=== PATIENT | female | born 1935 | race Caucasian/White ===

== ENCOUNTER → 2016-10-18 | Outpatient (CLI) | payer OTHER, MEDICARE ==
[~2016-10-18] MED LIST: ALEN70TA2 PO; ASPCH81X PO; CALCTAB7 PO; CHOL100027 PO; CHOL45CA2 PO; DOXY100C76 PO; HYDR-5688 PO; HYDR25TA4 PO; IBUP-103 PO; LEVO50TA6 PO; MULT-506 PO; SIMV20TA2 PO
--- NOTE | 2016-10-18 15:00 | MAMMOGRAPHY REPORT ---
UNILATERAL RIGHT DIGITAL DIAGNOSTIC MAMMOGRAM TOMOSYNTHESIS WITH CAD: 10/18/2016 CLINICAL HISTORY: 80-year-old woman presents for first evaluation of the right breast status post hiram mpectomy and radiation treatment for breast cancer. TECHNIQUE: Right breast CC and MLO 2-D digital and tomosynthesis images, spot magnification right CC and ML views were obtained. Current study was also evaluated with a Computer Aided Detection (CAD) system. COMPARISON: Comparison is made to exams dated: 05/10/2016 localization, 04/14/2016 stereotactic biops y, 04/14/2016 mammogram, 04/07/2016 ultrasound, 04/07/2016 mammogram, and 03/23/2016 mammogram - [facility]. BREAST COMPOSITION: There are scattered areas of fibroglandular density in the right breast. FINDINGS: A linear scar marker overlies the periareolar anterior right breast and also right axilla denoting the areas of prior lumpectomy and sentinel lymph node sampling. There is mild diffuse trab ecular edema and skin thickening, most prominent in the periareolar anterior right breast. An asymm etry in the subareolar right breast is no longer identified. There are a few benign appearing calci fications and minimal vascular calcifications. No suspicious mass, architectural distortion or clus ter of microcalcifications is seen. IMPRESSION: ACR-BI-RADS CATEGORY 3: PROBABLY BENIGN There are expected post therapeutic changes in the right breast, without definite mammographic evide nce of malignancy. Advise follow-up in 6 months to reassess post treatment changes in the right dirk ast and for spot magnification views of the lumpectomy bed. Annual left mammography will also be du e at that time. These results and recommendations were discussed with the patient and her daughter at the time of the exam. Approximately 10% of breast cancers are not detected with mammography. A negative mammographic repor t should not delay biopsy if a clinically suggestive mass is present. Sonia Tony M.D. ay/:10/18/2016 12:37:25 Law Office Manager: Sydnee Keith, [facility] letter sent: Follow Up Recommended 3 BI-RADS Code: ACR-BI-RADS Category 3: Probably Benign
== END | disposition home or self-care (01) ==
LOC: C.MAMM 10:35
PROVIDERS: ATTEND Internal Medicine Geriatric Medicine
DX: Z85.3 Personal history of malignant neoplasm of breast (principal); Z08 Encounter for follow-up examination after completed treatment for malignant neoplasm; Z98.890 Other specified postprocedural states; Z92.3 Personal history of irradiation

== ENCOUNTER → 2016-12-14 | Outpatient (CLI) | payer OTHER, MEDICARE ==
[~2016-12-14] MED LIST changes: -HYDR-5688 PO
== END | disposition home or self-care (01) ==
LOC: C.LABBC 11:24
PROVIDERS: ATTEND Internal Medicine Geriatric Medicine
DX: E03.9 Hypothyroidism, unspecified (principal)

== ENCOUNTER → 2017-04-18 | Outpatient (CLI) | payer OTHER, MEDICARE ==
--- NOTE | 2017-04-18 14:32 | MAMMOGRAPHY REPORT ---
BILATERAL DIGITAL DIAGNOSTIC MAMMOGRAM TOMOSYNTHESIS WITH CAD: 04/18/2017 CLINICAL HISTORY: History of right breast cancer status post lumpectomy. She did not have radiation therapy. The patient reports no lumps or other new complaints. TECHNIQUE: Breast tomosynthesis in addition to standard 2D mammography was performed. Current study was also evaluated with a Computer Aided Detection (CAD) system. Bilateral CC and MLO 2-D and tomosy nthesis images and spot magnification right cc and ML views were obtained. COMPARISON: Comparison is made to exams dated: 10/18/2016 mammogram, 03/23/2016 mammogram, 03/31/2015 ul trasound, 03/31/2015 mammogram, 03/21/2015 mammogram, and 03/20/2014 mammogram - [facility] nter. BREAST COMPOSITION: There are scattered areas of fibroglandular density in both breasts. FINDINGS: There are stable postsurgical changes in the right anterior breast from prior lumpectomy, including stable density, architectural distortion, and surgical clips at the lumpectomy bed. Spot m agnification views of the lumpectomy bed demonstrate no suspicious masses or clusters of microcalcifi cations. A few scattered benign-appearing right breast calcifications are stable. The remainder of both breasts are stable compared to prior exams, without suspicious masses, calcific ations, or areas of architectural distortion noted. IMPRESSION: ACR BI-RADS CATEGORY 2: BENIGN Stable postsurgical changes in the right breast, without mammographic evidence of malignancy in eithe r breast. Recommend routine bilateral mammograms in one year; I would recommend the patient be a suzy gnostic patient so that spot magnification views can be performed of the lumpectomy bed. The patient has been verbally notified of the results. Approximately 10% of breast cancers are not detected with mammography. A negative mammographic report should not delay biopsy if a clinically suggestive mass is present. Diane June M.D. /:04/18/2017 13:53:57 Envelope Maker: Myrna DE SANTIAGO)(Stephany), [facility] letter sent: Normal 1/2 BI-RADS Code: ACR BI-RADS Category 2: Benign
== END | disposition home or self-care (01) ==
LOC: C.MAMM 13:22
PROVIDERS: ATTEND Internal Medicine Geriatric Medicine
DX: R92.8 Other abnormal and inconclusive findings on diagnostic imaging of breast (principal); N64.89 Other specified disorders of breast

== ENCOUNTER → 2017-09-29 | Outpatient (CLI) | payer OTHER, MEDICARE | END | disposition home or self-care (01) | LOC: C.MAMM 10:43 | PROVIDERS: ATTEND Internal Medicine Geriatric Medicine | DX: M85.89 Other specified disorders of bone density and structure, multiple sites (principal) ==

== ENCOUNTER → 2017-10-19 | Outpatient (CLI) | payer OTHER, MEDICARE | END | disposition home or self-care (01) | LOC: C.LAB 10:18 | PROVIDERS: ATTEND Internal Medicine Geriatric Medicine | DX: E03.9 Hypothyroidism, unspecified (principal); M81.0 Age-related osteoporosis without current pathological fracture; E78.5 Hyperlipidemia, unspecified; N20.0 Calculus of kidney; I10 Essential (primary) hypertension; E83.52 Hypercalcemia; E55.9 Vitamin D deficiency, unspecified ==

== ENCOUNTER → 2018-04-20 | Outpatient (CLI) | payer OTHER, MEDICARE ==
--- NOTE | 2018-04-20 16:01 | MAMMOGRAPHY REPORT ---
BILATERAL DIGITAL DIAGNOSTIC MAMMOGRAM TOMOSYNTHESIS WITH CAD: 04/20/2018 CLINICAL HISTORY: History of right breast cancer status post lumpectomy. The patient presents for jessica ateral follow-up. She denies any palpable lumps. She reports she did have one episode of pain in the right breast at the surgical bed which resolved after a few seconds. TECHNIQUE: The study was acquired using full field digital technology and interpreted from soft copy. Breast tomosynthesis in addition to standard 2D mammography was performed. Current study was also ev aluated with a Computer Aided Detection (CAD) system. Bilateral CC and MLO 2D and tomosynthesis imag es and spot magnification right cc and ML views were obtained. COMPARISON: Comparison is made to exams dated: 04/18/2017 mammogram, 10/18/2016 mammogram, 04/14/2016 m ammogram, 04/07/2016 mammogram, 03/23/2016 mammogram, and 10/10/2015 mammogram - [facility] enter. BREAST COMPOSITION: There are scattered areas of fibroglandular density in both breasts. FINDINGS: There are stable postsurgical changes in the right anterior breast from prior lumpectomy, including s table density, architectural distortion, and surgical clips at the lumpectomy bed. Spot magnificatio n views of the lumpectomy bed demonstrate no suspicious masses or clusters of microcalcifications. T he remainder of both breasts are stable compared to prior exams, without suspicious masses, calcifica tions, or areas of architectural distortion noted. IMPRESSION: ACR BI-RADS CATEGORY 2: BENIGN There is no mammographic evidence of malignancy in either breast. A 1 year screening mammogram is rec ommended.(04/21/2019) The patient has been verbally notified of the results. Some breast cancers are not detected with mammography. A negative mammographic report should not missael y biopsy if a clinically suggestive mass is present. Diane June M.D. /:04/20/2018 14:10:39 Fire Technology Instructor: RT Makeda(R)(M), [facility] letter sent: Normal 1/2 BI-RADS Code: ACR BI-RADS Category 2: Benign
== END | disposition home or self-care (01) ==
LOC: C.MAMM 13:35
PROVIDERS: ATTEND Internal Medicine Geriatric Medicine
DX: Z85.3 Personal history of malignant neoplasm of breast (principal); Z08 Encounter for follow-up examination after completed treatment for malignant neoplasm

== ENCOUNTER 2025-01-01 17:22 | Inpatient (IN) ==
--- NOTE | 2025-01-01 18:34 | XRay Report ---
Clinical History: Pain after fall 3 views of the left shoulder are submitted for review. Findings: There is an acute mildly displaced fracture of the humeral neck No subluxation or dislocation is seen. There is mild acromioclavicular osteoarthritis. There is osteopenia. No other osseous abnormality is identified. There are no radiopaque foreign bodies. Impression: Acute fracture of the left humeral neck ACT 112: Positive. There are findings on this exam that require communication between the performing entity and the patient following Patient Test Result Information Act ([place] ACT 112) guidelines. Electronically signed by Mohinder Hansen 01-01-2025 6:34 PM
--- NOTE | 2025-01-01 18:34 | XRay Report ---
Clinical History: Pain after fall 2 views of the left wrist are submitted for review. Findings: No fracture or dislocation is seen. No significant arthritic changes are noted. There is osteopenia. No other osseous abnormality is identified. There are no radiopaque foreign bodies. Impression: No definite fracture after fall Electronically signed by Mohinder Hansen 01-01-2025 6:33 PM
--- NOTE | 2025-01-01 18:35 | XRay Report ---
Clinical History: Pain after fall 3 views of the left humerus are submitted for review. Findings: There is an acute mildly displaced fracture of the humeral neck. No other definite fracture is seen No subluxation or dislocation is seen. There is mild acromioclavicular osteoarthritis. There is osteopenia. No other osseous abnormality is identified. There are no radiopaque foreign bodies. Impression: Acute left humeral neck fracture ACT 112: Positive. There are findings on this exam that require communication between the performing entity and the patient following Patient Test Result Information Act ([place] ACT 112) guidelines. Electronically signed by Mohinder Hansen 01-01-2025 6:35 PM
[2025-01-01] MEDS: ONDANSETRON 4 MG OD TAB PO STA (19:43)
--- NOTE | 2025-01-01 19:51 | Emergency Department Note ---
Impression & Plan Closed fracture of neck of left humerus, Leukocytosis, Ground-level fall, Left shoulder pain, Nausea & vomiting, Headache ED Provider Note CHIEF COMPLAINT:, Fall, left arm pain HISTORY OF PRESENTING ILLNESS: The patient is a 89-year-old female who presents to the emergency department via EMS due to a ground-level fall an hour ago where her foot got stuck in the blanket before standing up from a chair. Fall was not witnessed. Family was at home. Complaining of left arm pain toward the shoulder. 1 episode of nausea and vomiting upon arrival. Family confirms that she keeps rubbing her head as well as the right side of her rib cage. Denies hitting head, LOC, blood thinners, chest pain, shortness of breath, abdominal pain, or back pain. Patient is able to give a history but is not the best historian. History obtained from family members as well. REVIEW OF SYSTEMS: See HPI for pertinent positives and pertinent negatives. ALLERGIES: NKDA MEDICATIONS: See below PAST MEDICAL HISTORY: See below PHYSICAL EXAM: VITALS: Vitals are noted on the nurse's note and reviewed by myself. Vital signs stable. GENERAL: 89-year-old female, lying in bed holding her left arm, in obvious discomfort, emesis bag on her lap, in no acute distress, nondiaphoretic, well- developed well-nourished. SKIN: Capillary refill less than 2 seconds. HEENT: Normocephalic. PERRLA. EOMI. Nares patent. Mucous membranes moist. Neck is supple without nuchal rigidity. TM visualized without abnormality. Normal dentition. No tenderness upon palpation to all aspects of the head and face. No cervical spine tenderness. Family confirms that she keeps holding her head as if she has a headache. HEART: Regular rate and rhythm without murmurs gallops or rubs. No chest pain upon palpation. LUNGS: Clear to auscultation bilaterally without wheezes, rales or rhonchi. No retractions or accessory muscle use. No tenderness upon palpation to bilateral rib cage. ABDOMEN: Positive bowel sounds x 4. Soft, nontender, without masses or organomegaly. No guarding or rebound tenderness. Daughters confirm that she keeps holding onto the right side of her rib cage/abdomen. MUSCULOSKELETAL: Left shoulder without obvious deformity. Exquisite tenderness upon palpation to the anterior aspect of the shoulder. Patient ROM is significantly limited. 2+ radial and ulnar pulse palpated bilaterally. 3/5 right hand wide area network engineer strength secondary to discomfort. Neurovascularly intact. No tenderness upon palpation to the right upper extremity and bilateral lower extremities. No pedal edema. NEURO: Patient was alert and oriented to person place and time. Normal sensation to light and sharp touch. No focal neurological deficits. DIFFERENTIAL DIAGNOSIS: ED COURSE AND MEDICAL DECISION MAKING: HISTORY FROM INDEPENDENT HISTORIAN: The patient herself and her 3 daughters. MEDICATIONS GIVEN: Tylenol 1000 mg IV, morphine 3 mg IV, Zofran 4 mg PO INTERPRETATION OF LABS: I interpreted the labs with full lab results as below in the lab section of this note. Pertinent lab results discussed in the MDM section below. INTERPRETATION OF IMAGING: Imaging studies were interpreted by myself and read by radiology as per the imaging section of this note. X-ray left wrist - No definite fracture after fall. CT abdomen pelvis - No parenchymal laceration or hemoperitoneum CT cervical spine - No fracture or acute bony abnormality. CT head - Mild age-related findings and incidental 6 mm right frontal meningioma. No skull fracture, bleed, or acute intracranial abnormality. CT chest - Moderate hiatal hernia nonspecific esophageal fluid, GE reflux not excluded. Impacted fracture of the left humeral neck. No pneumothorax, aortic injury, or acute intrathoracic abnormality Right knee x-ray - Previous ORIF right femur. Bony calcifications distal femur chronic. No fracture or acute bony abnormality. CT lumbar spine - No fracture or acute bony abnormality. CT thoracic spine - No fracture or acute bony abnormality. Hiatal hernia questionable GERD. Left shoulder CT/x-ray - Comminuted and impacted fracture left humeral neck. ESCALATION OF CARE CONSIDERED: Escalation of care was considered due to the patient's age and an unwitnessed fall. Patient complains of significant amount of pain as well as continues to hold her head and her right sided rib cage. Bailey scans were obtained showing no significant findings other than a comminuted and impacted fracture of the left humeral neck. Patient regularly ambulates with a cane for help with balance. I did discuss with the patient's 3 daughters that having the left arm in a sling may make ambulating at home and activities of daily living difficult. Daughters confirm and agreed that they understand. Patient had an elevated white count and required IV morphine for pain management. Patient was admitted to medicine. CONSULTATIONS: On-call [facility] hospitalist provider - I presented the patient to the provider, notified them of the left humeral neck fracture, elevated white count, IV pain medication requirement, ambulatory dysfunction, and family members agreeing that it may not be ideal or safe for the patient to go home this evening due to how she is feeling in the emergency department today. Medicine agrees to admission and confirms that they will go and evaluate the patient. I did inform them that I did not consult with orthopedics. Typically humeral neck fractures are placed in a sling and discharged routinely. They agreed they would admit her. MDM SUMMARY: The patient is an 89-year-old female presents to the ER with her 3 daughters due to a ground-level fall, left shoulder pain, family confirms that she has been holding her head and her right side rib/abdomen. Episode of nausea and vomiting upon arrival. Denies hitting head, LOC, blood thinners, chest pain, shortness of breath, abdominal pain, or back pain. Patient is able to give a history but is not the best historian. History obtained from family members as well. Due to the patient being a poor historian, unwitnessed fall, and my physical exam the patient was bailey scanned. Tylenol was given for symptom management originally. All imaging results can be seen in detail above. After the patient obtained CT scan she was in a significant amount of discomfort. Morphine and Zofran were given. Left shoulder imaging reveals comminuted and impacted fracture of the left humeral neck. Patient and family were informed of this finding as well as all incidental findings. Leukocytosis WBC 15.45. RBC 5.01. Hemoglobin hematocrit 14.1/43.5. No electrolyte abnormalities. BUN 24. Creatinine 0.64. Troponin normal less than 2.3. No other significant findings. No obvious cause for leukocytosis. Urinalysis was ordered upon admission to rule out UTI. I talked with the patient as well as her 3 daughters regarding if it is safe for her to go home. They do confirm that she ambulates with a cane that helps her significantly with her balance. We did discuss that ultimately her left arm will now be in a sling due to the fracture so she will have 1 limited arm to help her with ambulation. 3 daughters confirm that they feel as if she may benefit from being admitted for pain management as well as potentially therapy to learn how to strengthen herself to use the cane with 1 arm suspended in a sling. I did confirm with them that ultimately I think this is the safest plan so that she does not have any falls at home. I did discuss the patient admission with on-call Therese [facility]s hospitalist which can be seen in detail above. They confirmed that they would evaluate the patient themselves and admit her. All family members were notified of the plan and agreed to the outlined treatment. The remainder of her care was managed by the hospitalist. DIAGNOSIS: Closed fracture of neck of left humerus, leukocytosis, ground-level fall, left shoulder pain, nausea and vomiting, headache The chart was completed utilizing [email or web address] Speech voice recognition software. Grammatical errors, random word insertions, pronoun errors, and incomplete sentences are an occasional consequence of this system due to software limitations, ambient noise, and hardware issues. Any formal questions or concerns about the content, text, or information contained within the body of this dictation should be directly addressed to the provider for clarification. Past Med/Surg History Problem List Headache (Acute) Nausea & vomiting (Acute) Left shoulder pain (Acute) Ground-level fall (Acute) Leukocytosis (Acute) Closed fracture of neck of left humerus (Acute) Hypoxia Leukocytosis Fracture of neck of left humerus (01/01/25) Comminuted and impacted fracture left humeral neck from a fall. 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) "Abnormal right breast mammogram Status post stereotactic biopsy 04/14/2016 revealing DCIS Estrogen receptor positive and progesterone receptor positive Status post lumpectomy and sentinel lymph node biopsy 05/10/2016 Stage pTis pN0 Wound dehiscence and placement of wound VAC For removal of wound VAC 06/18/2016" Surgical History History of esophagogastroduodenoscopy (EGD) H/O total hysterectomy with bilateral salpingo-oophorectomy (BSO) History of open reduction and internal fixation (ORIF) procedure (~1997) right hip fx repair History of total right hip replacement History of lumpectomy of right breast History of right breast biopsy malignant History of tooth extraction partial upper/full lower History of wisdom tooth extraction History of tonsillectomy and adenoidectomy S/P cataract surgery bilt Family History Mother Diabetes Heart disease Family history of diabetes mellitus Myocardial infarction Sister Sarcoma Suicide Family history of diabetes mellitus Ovarian cancer Father Family history of diabetes mellitus Myocardial infarction Sister Family history of diabetes mellitus Other Breast cancer No family history of adverse response to anesthesia Denies family history of Prostate cancer Lung cancer Colorectal cancer Social History Smoking Status: Never smoker Second Hand Exposure: No; Do You Dip or Chew Tobacco: No; Hx Alcohol Use: No Hx Substance Use: No Preferred Language: Syrian Communication Ability: Effective Hearing Ability: Normal Inbound Telemarketer Required: No Beliefs That Will Affect Care: None marital status: / Current Living Situation: Family Current Living Situation Comment: Lives with daughter current occupational status: retired Feels Safe at Home: Yes Safety Concerns Comment: Fall concerns Childhood Exposure to Second-Hand Smoke: No Diet: regular caffeine: No Dental Care, Regularly: Yes Physical Activity Frequency: 3-4 Times per Week Seatbelt Use: always Sunscreen Use: Yes Assistive Devices: Cane Allergies Allergies Allergy/AdvReac Type Severity Reaction Status Date / Time No Known Allergies Allergy Verified 01/01/25 22:40 Home Meds Home Medications Medication Instructions Recorded Confirmed alendronate 70 mg tablet (Fosamax) 70 mg PO WK 01/01/25 01/01/25 ferrous sulfate 325 mg (65 mg 325 mg PO 3XWK 01/01/25 01/01/25 iron) tablet Previous Rx's Medication Instructions Recorded levothyroxine 75 mcg tablet 75 mcg PO DAILY #90 tabs 05/14/24 simvastatin 20 mg tablet 20 mg PO QPM #90 tabs 05/14/24 escitalopram oxalate 10 mg tablet 10 mg PO DAILY #10 tabs 07/13/24 Results & Data (ED) Vital Signs Vital Signs - 24 hr 01/01/25 23:00 Pulse Rate [Apical] 81 Respiratory Rate 18 Respiratory Effort / Characteristics Non-Labored Spontaneous Respiratory Depth Normal Respiratory Pattern Regular Blood Pressure [Right Arm] 134/105 H Blood Pressure Mean [Right Arm] 114 Pulse Oximetry 99 Oxygen Delivery Method Nasal Cannula Oxygen Flow Rate 1 Laboratory Data 01/02/25 06:46 01/02/25 06:46 Lab Results 01/01/25 01/01/25 Range/Units 20:24 20:29 WBC 15.45 H (4.8-10.8) K/ul RBC 5.01 (4.20-5.40) M/uL Hgb 14.1 (12.0-16.0) g/dl POC Hgb 14.6 (12.0-16.0) g/dl Hct 43.5 (37.0-47.0) % POC Hct 43 (37-47) % MCV 86.8 (80.0-100.0) fL MCH 28.1 (25.0-34.0) pg MCHC 32.4 (32.0-36.0) g/dL RDW Std Deviation 43.2 (36.4-46.3) fL RDW Coeff of Oralia 13.8 (11.5-14.5) % Plt Count 160 (130-400) K/uL MPV 10.0 (9.4-12.4) fL Immature Gran % (Auto) 0.9 % Neut % (Auto) 91.6 % Lymph % (Auto) 3.9 % [place] % (Auto) 3.2 % Eos % (Auto) 0.1 % Baso % (Auto) 0.3 % Neut # (Auto) 14.15 H (1.40-6.50) K/uL Lymph # (Auto) 0.61 L (1.20-3.40) K/uL [place] # (Auto) 0.50 (0.11-0.59) K/uL Eos # (Auto) 0.01 (0.00-0.50) K/uL Baso # (Auto) 0.04 (0.00-0.20) K/uL Immature Gran # (Auto) 0.14 (0.01-0.20) K/uL POC Sodium 142 (135-144) mmol/L Sodium 140 (136-145) mmol/L POC Potassium 3.8 (3.3-5.0) mmol/L Potassium 3.9 (3.5-5.1) mmol/L POC Chloride 104 (101-112) mmol/L Chloride 105 (98-107) mmol/L Carbon Dioxide 30 (21-32) mmol/L POC Total CO2 27 (24-31) mmol/L Anion Gap 5 (3-11) POC Anion Gap 16.0 (16-25) mmol/L POC BUN 24 H (7-18) mg/dl BUN 24 H (6-23) mg/dl Creatinine 0.64 (0.6-1.2) mg/dl POC Creatinine 0.6 (0.6-1.3) mg/dl Est Cr Clr Drug Dosing Not Reportable eGFR 84.95 BUN/Creatinine Ratio 37.5 H (10-20) Glucose 130 H (70-99(Fasting)) mg/dl POC Glucose (other) 130 H (70-99) mg/dl Calcium 9.3 (8.6-10.3) mg/dl POC Ioniz Calcium Ninoska 1.14 (1.12-1.32) mmol/l Total Bilirubin 0.5 (0.2-1.0) mg/dl AST 17 (13-39) U/L ALT 9 (7-52) U/L Alkaline Phosphatase 73 (34-104) U/L Troponin I High Sens < 2.3 (0-14) pg/ml Total Protein 7.0 (6.0-8.3) gm/dl Albumin 4.6 (3.4-5.0) gm/dl Globulin 2.4 L (2.5-4.0) gm/dl Albumin/Globulin Ratio 1.9 (0.9-2) Administered Medications Acetaminophen (Acetaminophen 500 Mg Tab) 1,000 mg PO TID NOLAN Stop: 02/01/25 08:59 Last Admin: 01/02/25 20:02 Dose: 1,000 mg Documented By: Admin: 01/02/25 14:36 Dose: 1,000 mg Documented By: Admin: 01/02/25 08:18 Dose: 1,000 mg [place] [facility] [place]italopram Oxalate (Escitalopram Oxalate 10 Mg Tab) 10 mg PO DAILY NOLAN Stop: 02/01/25 08:59 Last Admin: 01/02/25 08:19 Dose: 10 mg [place]ed [place] [facility] [place] Ferrous Sulfate (Ferrous Sulfate 325 Mg Tab) 325 mg PO MoWeFr@0900 NOLAN Stop: 02/01/25 08:59 Last Admin: 01/02/25 08:19 Dose: 325 mg Documented By: [facility] [place]othyroxine Sodium (Levothyroxine Sodium 75 Mcg Tablet) 75 mcg PO DAILYBB NOLAN Stop: 02/01/25 06:29 Last Admin: 01/02/25 08:19 Dose: 75 mcg Documented By: [facility] [place] Simvastatin (Simvastatin 20 Mg Tab) 20 mg PO QPM NOLAN Stop: 02/01/25 20:59 Last Admin: 01/02/25 20:02 Dose: 20 mg Documented By: JAVIERK Discontinued Medications Acetaminophen (Ofirmev) 1,000 mg in 100 mls @ 400 mls/hr IV NOW STA Stop: 01/01/25 20:17 Last Infusion: 01/01/25 20:42 Dose: Infused Documented By: Admin: 01/01/25 20:27 Dose: 400 mls/hr Documented By: [facility] Ioversol (Optiray 320 100ml) 90 ml IV ONCE ONE Stop: 01/01/25 20:43 Last Admin: 01/01/25 20:42 Dose: 90 ml Documented By: Kody Morphine Sulfate (Morphine Sulfate 4 Mg/Ml 1 Ml Carp\\Vial) 3 mg IV NOW STA Stop: 01/01/25 21:01 Last Admin: 01/01/25 21:06 Dose: 3 mg Documented By: [facility] Ondansetron HCl (Ondansetron 4 Mg Od Tab) 4 mg PO NOW STA Stop: 01/01/25 19:41 Last Admin: 01/01/25 19:43 Dose: 4 mg Documented By: [facility] Imaging Data Radiologist's Impression: Humerus X-Ray 01/01/25 17:43 Clinical History: Pain after fall 3 views of the left humerus are submitted for review. Findings: There is an acute mildly displaced fracture of the humeral neck. No other definite fracture is seen No subluxation or dislocation is seen. There is mild acromioclavicular osteoarthritis. There is osteopenia. No other osseous abnormality is identified. There are no radiopaque foreign bodies. Impression: Acute left humeral neck fracture ACT 112: Positive. There are findings on this exam that require communication between the performing entity and the patient following Patient Test Result Information Act ([place] ACT 112) guidelines. Electronically signed by Mohinder Hansen 01-01-2025 6:35 PM Shoulder X-Ray 01/01/25 17:43 Clinical History: Pain after fall 3 views of the left shoulder are submitted for review. Findings: There is an acute mildly displaced fracture of the humeral neck No subluxation or dislocation is seen. There is mild acromioclavicular osteoarthritis. There is osteopenia. No other osseous abnormality is identified. There are no radiopaque foreign bodies. Impression: Acute fracture of the left humeral neck ACT 112: Positive. There are findings on this exam that require communication between the performing entity and the patient following Patient Test Result Information Act ([place] ACT 112) guidelines. Electronically signed by Mohinder Hansen 01-01-2025 6:34 PM Wrist X-Ray 01/01/25 17:43 Clinical History: Pain after fall 2 views of the left wrist are submitted for review. Findings: No fracture or dislocation is seen. No significant arthritic changes are noted. There is osteopenia. No other osseous abnormality is identified. There are no radiopaque foreign bodies. Impression: No definite fracture after fall Electronically signed by Mohinder Hansen 01-01-2025 6:33 PM Discharge Plan Visit Data Chief Complaint: Fall Stated Complaint: GLF, L Arm Pain ED Provider: Dayna Troncoso ED Midlevel Provider: Maryann Garcia Discharge Problem: Closed fracture of neck of left humerus, Leukocytosis, Ground-level fall, Left shoulder pain, Nausea & vomiting, Headache Patient Disposition: Admitted As Inpatient Condition: Good Discharge Instructions Interventions: ED Discharge Assessment Last Done: 01/02/25 01:32 Discharge Problem: Closed fracture of neck of left humerus Qualifiers: Encounter type: initial encounter Qualified Code(s): S42.212A - Unspecified displaced fracture of surgical neck of left humerus, initial encounter for closed fracture Leukocytosis Qualifiers: Leukocytosis type: unspecified Qualified Code(s): D72.829 - Elevated white blood cell count, unspecified Left shoulder pain Qualifiers: Chronicity: acute Qualified Code(s): M25.512 - Pain in left shoulder Nausea & vomiting Qualifiers: Vomiting type: unspecified Qualified Code(s): R11.2 - Nausea with vomiting, unspecified Headache Qualifiers: Headache type: unspecified Headache chronicity pattern: acute headache I ntractability: not intractable Qualified Code(s): R51.9 - Headache, unspecified
[2025-01-01] MEDS: ACETAMINOPHEN 1,000 MG/100 ML VIAL IV STA (20:27)
[2025-01-01 20:41] LABS: iSTAT Creatinine 0.6 mg/dl (0.6-1.3); iSTAT Hemoglobin 14.6 g/dl (12.0-16.0); iSTAT Ionized Calcium 1.14 mmol/l (1.12-1.32); iSTAT Potassium 3.8 mmol/L (3.3-5.0)
[2025-01-01 20:42] LABS: Hematocrit (blood only) 43.5 % (37.0-47.0); Hemoglobin 14.1 g/dl (12.0-16.0); Mean Corpuscular Hemoglobin 28.1 pg (25.0-34.0); Mean Corpuscular Hgb Conc 32.4 g/dL (32.0-36.0); Mean Corpuscular Volume 86.8 fL (80.0-100.0); Platelet Count 160 K/uL (130-400); RDW Coefficient of Variation 13.8 % (11.5-14.5); RDW Standard Deviation 43.2 fL (36.4-46.3); Red Blood Count 5.01 M/uL (4.20-5.40); White Blood Count 15.45 K/ul (4.8-10.8)
[2025-01-01] MEDS: OPTIRAY 320 100ml IV ONE (20:42)
[2025-01-01 20:58] LABS: Alanine Aminotransferase 9 U/L (7-52); Albumin Globulin Ratio 1.9 (0.9-2); Albumin Level 4.6 gm/dl (3.4-5.0); Alkaline Phosphatase 73 U/L (34-104); Anion Gap 5 (3-11); Aspartate Aminotransferase 17 U/L (13-39); BUN Creatinine Ratio 37.5 (10-20); Bilirubin,Total 0.5 mg/dl (0.2-1.0); Blood Urea Nitrogen 24 mg/dl (6-23); Calcium 9.3 mg/dl (8.6-10.3); Carbon Dioxide 30 mmol/L (21-32); Chloride 105 mmol/L (98-107); Globulin 2.4 gm/dl (2.5-4.0); Glucose 130 mg/dl (70-99(Fasting)); Potassium 3.9 mmol/L (3.5-5.1); Sodium 140 mmol/L (136-145)
[2025-01-01 21:05] LABS: Troponin I High Sensitivity < 2.3 pg/ml (0-14)
[2025-01-01] MEDS: MoRPHine SULFATE 4 MG/ML 1 ML CARP\\VIAL IV STA (21:06)
[2025-01-01 22:12] LABS: Basophils # (auto) 0.04 K/uL (0.00-0.20); Basophils % (auto) 0.3 %; Eosinophils # (auto) 0.01 K/uL (0.00-0.50); Eosinophils % (auto) 0.1 %; Immature Granulocytes # (auto) 0.14 K/uL (0.01-0.20); Immature Granulocytes % (auto) 0.9 %; Lymphocytes # (auto) 0.61 K/uL (1.20-3.40); Lymphocytes % (auto) 3.9 %; Monocytes % (auto) 3.2 %; Neutrophils # (auto) 14.15 K/uL (1.40-6.50); Neutrophils % (auto) 91.6 %
--- NOTE | 2025-01-01 22:18 | XRay Report ---
Exam(s): XR RIGHT KNEE, 3 views EXAM: XR Right Knee, 3 Views CLINICAL HISTORY: Reason for exam: fall. TECHNIQUE: Three views of the right knee. COMPARISON: No relevant prior studies available. FINDINGS: Bones/joints: Partially imaged intramedullary christiana mid to distal femur. Calcifications within the distal femur metadiaphyseal junction, 2.7 x 1.2 x 1.2 cm, chronic. Minimal patellofemoral osteoarthritis. No acute fracture. No dislocation. Soft tissues: No joint effusion. IMPRESSION: 1. Previous ORIF right femur. 2. Bony calcifications distal femur, chronic. 3. No fracture or acute bony abnormality. Electronically signed by: Madelin Hoffmann M.D. 01/01/25 22:18 PM
--- NOTE | 2025-01-01 22:22 | CT Scan Report ---
Exam(s): CT HEAD Without Contrast EXAM: CT Head Without Intravenous Contrast CLINICAL HISTORY: Reason for exam: fall. TECHNIQUE: Axial computed tomography images of the head/brain without intravenous contrast. Automated exposure control was utilized for the study. A dose lowering technique was utilized adhering to the principles of ALARA. Mild motion artifact. COMPARISON: None. FINDINGS: Brain: 6 mm extra-axial, hypodense nodule right frontal lobe near the vertex, incidental, probable meningioma. No mass effect or acute infarct. No acute hemorrhage. Mild atrophy and chronic white matter disease. Ventricles: No hydrocephalus or midline shift. Bones/joints: No skull fracture. Soft tissues: No scalp hematoma. Visualized Sinuses: Clear. Mastoid air cells: No mastoid effusion. IMPRESSION: 1. Mild age-related findings, and an incidental, 6 mm right frontal meningioma. 2. No skull fracture, bleed, or acute intracranial abnormality. Electronically signed by: Madelin Hoffmann M.D. 01/01/25 22:22 PM
--- NOTE | 2025-01-01 22:28 | CT Scan Report ---
Exam(s): CT L SPINE With Contrast IV Amt: 90 ml optiray 320 EXAM: CT Lumbar Spine With Intravenous Contrast CLINICAL HISTORY: Reason for exam: fall. TECHNIQUE: Axial computed tomography images of the lumbar spine with intravenous contrast. Automated exposure control was utilized for the study. A dose lowering technique was utilized adhering to the principles of ALARA. CTDI is mGy and DLP is mGy-cm. 90 ML Optiray 320 given IV. Mild to moderate motion artifact. COMPARISON: None. FINDINGS: Vertebrae: No acute fracture. Osteoporosis. Discs/spinal canal/neural foramina: Severe diffuse degenerative disc disease with multilevel vacuum disc. Moderate facet hypertrophy. Soft tissues: Aortic atherosclerosis.. IMPRESSION: 1. No fracture or acute bony abnormality. Electronically signed by: Madelin Hoffmann M.D. 01/01/25 22:27 PM
--- NOTE | 2025-01-01 22:29 | CT Scan Report ---
Exam(s): CT T SPINE IV Amt: 90 ml optiray 320 EXAM: CT Thoracic Spine With Intravenous Contrast CLINICAL HISTORY: Reason for exam: fall. TECHNIQUE: Axial computed tomography images of the thoracic spine with intravenous contrast. Automated exposure control was utilized for the study. A dose lowering technique was utilized adhering to the principles of ALARA. CTDI is mGy and DLP is mGy-cm. Mild breathing motion artifact. CONTRAST: Patient received 90 ml optiray 320 of IV contrast COMPARISON: None. FINDINGS: Vertebrae: No acute fracture. Incidental sclerosis T9, and discogenic endplate sclerosis thoracolumbar junction. Discs/spinal canal/neural foramina: Moderate degenerative disc disease, commensurate with age. Soft tissues: Atherosclerotic aorta and moderate hiatal hernia. Fluid in the esophagus is nonspecific, may relate to gastroesophageal reflux or recent ingestion. IMPRESSION: 1. No fracture or acute bony abnormality. 2. Hiatal hernia and questionable gastroesophageal reflux. Electronically signed by: Madelin Hoffmann M.D. 01/01/25 22:28 PM
--- NOTE | 2025-01-01 22:29 | CT Scan Report ---
Exam(s): CT C SPINE EXAM: CT Cervical Spine Without Intravenous Contrast CLINICAL HISTORY: Reason for exam: fall. TECHNIQUE: Axial computed tomography images of the cervical spine without intravenous contrast. Automated exposure control was utilized for the study. A dose lowering technique was utilized adhering to the principles of ALARA. CTDI is mGy and DLP is mGy-cm. COMPARISON: None. FINDINGS: Vertebrae: No acute fracture. Discs/spinal canal/neural foramina: Moderate degenerative disc and facet disease, commensurate with age. Soft tissues: Unremarkable. IMPRESSION: 1. No fracture or acute bony abnormality. Electronically signed by: Madelin Hoffmann M.D. 01/01/25 22:28 PM
--- NOTE | 2025-01-01 22:44 | CT Scan Report ---
Exam(s): CT CHEST With Contrast IV Amt: 90 ml optiray 320 EXAM: CT Chest With Intravenous Contrast CLINICAL HISTORY: Reason for exam: fall. TECHNIQUE: Axial computed tomography images of the chest with intravenous contrast. Automated exposure control was utilized for the study. A dose lowering technique was utilized adhering to the principles of ALARA. CTDI is mGy and DLP is mGy-cm. Mild breathing/motion artifact and from bilateral arms in the [id number]. CONTRAST: Patient received 90 ml optiray 320 of IV contrast COMPARISON: None. FINDINGS: Lungs: Grossly clear, limited by breathing motion artifact. No consolidation. Pulmonary arteries: No engorgement. Aorta: No thoracic aortic aneurysm. Pleural space: No effusion. No pneumothorax. Heart: No cardiomegaly. No significant pericardial effusion. Bones/joints: Mild impacted fracture left humeral neck. No other acute fracture. Soft tissues: Moderate hiatal hernia and mild fluid in the mid/distal esophagus, nonspecific, may be from recent ingestion of food or drink. Cannot rule out gastroesophageal reflux.. Lymph nodes: No enlarged lymph nodes. IMPRESSION: 1. Moderate hiatal hernia and nonspecific esophageal fluid, GE reflux not excluded. 2. Impacted fracture left humeral neck. 3. No pneumothorax, aortic injury, or acute intrathoracic abnormality. Electronically signed by: Madelin Hoffmann M.D. 01/01/25 22:43 PM
--- NOTE | 2025-01-01 22:45 | CT Scan Report ---
Exam(s): CT LEFT SHOULDER Without Contrast EXAM: CT Left Upper Extremity Without Intravenous Contrast, Shoulder CLINICAL HISTORY: Reason for exam: shoulder. TECHNIQUE: Axial computed tomography images of the left shoulder without intravenous contrast. Automated exposure control was utilized for the study. A dose lowering technique was utilized adhering to the principles of ALARA. MPR and 3D reformats are performed and reviewed. COMPARISON: Left shoulder x-ray, same day. FINDINGS: Bones/joints: Impacted and comminuted fracture left humeral neck. No other fracture. No dislocation. Soft tissues: Unremarkable. IMPRESSION: 1. Comminuted and impacted fracture left humeral neck. Electronically signed by: Madelin Hoffmann M.D. 01/01/25 22:44 PM
--- NOTE | 2025-01-01 22:46 | CT Scan Report ---
Exam(s): CT ABDOMEN + PELVIS With Contrast IV Amt: 90 ml optiray 320 EXAM: CT Abdomen and Pelvis With Intravenous Contrast CLINICAL HISTORY: Reason for exam: fall. TECHNIQUE: Axial computed tomography images of the abdomen and pelvis with intravenous contrast. Automated exposure control was utilized for the study. A dose lowering technique was utilized adhering to the principles of ALARA. Moderate artifact body habitus, breathing/patient motion and bilateral arms in the [id number]. CTDI is mGy and DLP is mGy-cm. CONTRAST: Patient received 90 ml optiray 320 of IV contrast COMPARISON: None. FINDINGS: Liver: No injury. Gallbladder and bile ducts: Normal gallbladder. No ductal dilation. Pancreas: No ductal dilation. Spleen: No laceration. Adrenals: Unremarkable. No mass. Kidneys and ureters: No injury. Stomach and bowel: No obstruction. Intraperitoneal space: No free air or fluid. Bones/joints: Metal artifact from right hip prosthesis. No acute fracture. Soft tissues: Unremarkable. Vasculature: No abdominal aortic aneurysm. Lymph nodes: No enlarged lymph nodes. Bladder: No injury. Reproductive: Unremarkable as visualized. IMPRESSION: 1. No parenchymal laceration or hemoperitoneum. Electronically signed by: Madelin Hoffmann M.D. 01/01/25 22:45 PM
--- NOTE | 2025-01-01 23:29 | History & Physical Report ---
Date of Service January 01, 2025 Assessment & Plan (1) Fall: (2) Ambulatory dysfunction: (3) Fracture of neck of left humerus: (4) Leukocytosis: (5) Hypoxia: (6) Cognitive impairment: Plan Patient is an 89-year-old female with a past medical history of cognitive impairment, hypertension, osteoporosis, hyperlipidemia. She presented to the ED via EMS after an unwitnessed, but fall in which her foot got stuck in a blanket when she went from sitting to standing from a chair. Diagnostic imaging in the ED revealed an impacted comminuted left humeral neck fracture. Patient is being admitted for ambulatory dysfunction as she uses a walker and a cane at home. Patient lives with her daughter at home who has work tomorrow and there was concerned about her being at home alone after the fall. #Fall/ambulatory dysfunction/left humeral neck fx Uses walker and cane at baseline imaging showed commuted and impacted left humeral neck fracture otherwise diagnostic imaging negative for acute changes arm Sling ordered Orthopedics consulted PT/OT consulted fall and aspiration precautions Tylenol prn, ibuprofen prn, and Oxycodone 2.5/5 (for pain not relieved by #1 and 2) Ice as needed Hx osteoporosis - continue alendronate at discharge #leukocytosis WC 15.45 with neutrophil predominance no signs in infection at time of admission, VSS, afebrile UA ordered suspect 2/2 stress trend CBC #hypoxia on 1L NC at time of admission chest CT negative suspect 2/2 IV morphine in ED wean O2 as tolerated incentive spirometry continuous pulse ox #incidental findings Head CT revealed 6mm right frontal meningioma Chest CT revealed moderate hiatal hernia follow with PCP Chronic stable diagnoses: dementiacontinue escitalopram, promote good sleep-wake cycles, melatonin as needed Hypothyroidismcontinue levothyroxine HLDcontinue statin VTE ppx: SCDs Diet: Regular Dispo: med surg with contiguous pulse ox Ultimate goal is for patient to return home with daughter, Deedee, that she lives with. Admission and Anticipated Discharge Date Admission Date: 01/02/25 History of Present Illness Chief Complaint: fall Primary Care Provider: Danette Kuo MD Patient is an 89-year-old female with a past medical history of cognitive impairment, hypertension, osteoporosis, hyperlipidemia. She presented to the ED via EMS after an unwitnessed, but fall in which her foot got stuck in a blanket when she went from sitting to standing from a chair. Diagnostic imaging in the ED revealed an impacted comminuted left humeral neck fracture. Patient is being admitted for ambulatory dysfunction as she uses a walker and a cane at home. Patient lives with her daughter at home who has work tomorrow and there was concerned about her being at home alone after the fall. Patient seen at bedside. she is oriented to self only. She stated she does remember falling today and fell on her left arm however does not remember what happened. She denies any head strike or loss of consciousness. Patient was very distressed about falling as she is always in good health and has had no falls previously. She said she vomited at home because she was upset about this. She typically ambulates well at baseline. She denies any significant ROS, pain is well-controlled at this point. She stated she lives at home with her family/daughter. Spoke with patient's daughter, Melanie on the phone. She stated that the patient has been more confused at home and up in the middle of the night however lives at home with her sister, Concepcion. The ultimate goal is for the patient to return home. She stated that the patient would wish to be full code and that she may be acutely more confused than her baseline after the morphine. Allergies Allergy/AdvReac Type Severity Reaction Status Date / Time No Known Allergies Allergy Verified 01/01/25 22:40 Home Medications Medication Instructions Recorded Confirmed Type levothyroxine 75 mcg tablet 75 mcg PO DAILY #90 tabs 05/14/24 01/01/25 Rx simvastatin 20 mg tablet 20 mg PO QPM #90 tabs 05/14/24 01/01/25 Rx escitalopram oxalate 10 mg tablet 10 mg PO DAILY #10 tabs 07/13/24 01/01/25 Rx alendronate 70 mg tablet (Fosamax) 70 mg PO WK 01/01/25 01/01/25 History ferrous sulfate 325 mg (65 mg 325 mg PO 3XWK 01/01/25 01/01/25 History iron) tablet Past Med/Surg History Problem List (Updated 01/02/25 @ 00:12 by Olena Laughlin PA-C) Hypoxia Leukocytosis Fracture of neck of left humerus Ambulatory dysfunction Fall Cognitive impairment (Chronic) Anxiety (Chronic) Sinus bradycardia Glaucoma (Chronic) Arthritis of knee, left (Chronic) Vitamin D deficiency (Chronic) PVCs (premature ventricular contractions) (Chronic) Osteoporosis (Chronic) Fosamax restarted 10/2022 Hypothyroidism (Chronic) Hypertension (Chronic) Dyslipidemia (Chronic) Disc degeneration, lumbar (Chronic) Cardiomyopathy (Chronic) Medical History (Updated 01/02/25 @ 00:12 by Olena Laughlin PA-C) Iron deficiency anemia negative colon 01/14, EGD 01/14 showed gastric erosions - resolved on follow up, negative capsule endoscopy 09/15 History of kidney stones 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) "Abnormal right breast mammogram Status post stereotactic biopsy 04/14/2016 revealing DCIS Estrogen receptor positive and progesterone receptor positive Status post lumpectomy and sentinel lymph node biopsy 05/10/2016 Stage pTis pN0 Wound dehiscence and placement of wound VAC For removal of wound VAC 06/18/2016" Surgical History History of esophagogastroduodenoscopy (EGD) H/O total hysterectomy with bilateral salpingo-oophorectomy (BSO) History of open reduction and internal fixation (ORIF) procedure (~1997) right hip fx repair History of total right hip replacement History of lumpectomy of right breast History of right breast biopsy malignant History of tooth extraction partial upper/full lower History of wisdom tooth extraction History of tonsillectomy and adenoidectomy S/P cataract surgery bilt Family History Mother Diabetes Heart disease Family history of diabetes mellitus Myocardial infarction Sister Sarcoma Suicide Family history of diabetes mellitus Ovarian cancer Father Family history of diabetes mellitus Myocardial infarction Sister Family history of diabetes mellitus Other Breast cancer No family history of adverse response to anesthesia Denies family history of Prostate cancer Lung cancer Colorectal cancer Social History (Updated 10/19/24 @ 09:00 by LAUREEN Fonseca) Smoking Status: Never smoker Second Hand Exposure: No; Do You Dip or Chew Tobacco: No; Hx Alcohol Use: No Hx Substance Use: No Preferred Language: Setswana Communication Ability: Effective Hearing Ability: Normal Cable Systems Installer Required: No Beliefs That Will Affect Care: None marital status: / Current Living Situation: Family Current Living Situation Comment: Lives with daughter current occupational status: retired Feels Safe at Home: Yes Safety Concerns Comment: Fall concerns Childhood Exposure to Second-Hand Smoke: No Diet: regular caffeine: No Dental Care, Regularly: Yes Physical Activity Frequency: 3-4 Times per Week Seatbelt Use: always Sunscreen Use: Yes Assistive Devices: Cane and Walker Review of Systems Review of Systems: see HPI Physical Exam Physical Exam: The patient is awake, oriented to self only. HEENT- EOMI, mucous membranes moist. Hearing grossly intact. Heart-normal S1 and S2. No murmurs, rubs or gallops. Lungs-clear bilaterally, no respiratory distress, no accessory muscle use. Abdomen-normal bowel sounds and soft. No ascites noted. Non-tender. Extremities- no clubbing, cyanosis, or edema. No significant pain to palpation of left upper extremity. Results & Data Results & Data Vital Signs (Past 12 Hours) Vital Signs Temp Pulse Pulse Resp BP BP Pulse Ox 01/01/25 21:57 76 18 169/91 H 100 01/01/25 20:28 77 22 150/76 H 96 01/01/25 17:32 36.2 C L 60 16 148/67 H 96 O2 Del Method 01/01/25 21:57 Room Air 01/01/25 20:28 Room Air 01/01/25 17:32 Room Air Laboratory Results reviewed cbc and cmp Medications Administered ED - Zofran 4mg IV, Tylenol 1g IV, morphine 3mg IV ECG Additional Comments: ordered Code Status & VTE Plan VTE Prophylaxis Plan VTE Prophylaxis will be ordered: Yes Supervising Physician Co-Signing Physician Notes I personally saw and examined the patient. I independently reviewed the labs, EKG, imaging, problem list, medication list, past medical history and family history. I verified all wall points and agree with Olena Laughlin PA-C with the following exceptions and/or additions: 89-year-old female presents to the ER following a ground-level fall after tripping on carpet. Unable to get any history from the patient due to baseline dementia. She is unable to tell me how much pain she is in with her shoulder. O/E HS RRR, no murmurs, Chest CTAB, Abdo SNT, normal left radial pulse and finger movement A/P Fall/ambulatory dysfunction/left humeral neck fx - consult ortho, will switch acetaminophen to regular, ibuprofen 1st line PRN and oxycodone 2nd line PRN Leukocytosis - suspect stress demargination, repeat level in AM PG Care Time/CCT Total # of Minutes Spent Total Time Spent with Patient: Total time spent is greater than 50% in coordination of care (as documented) at patient's floor/unit and/or counseling patient: Coding Level of Care Code 53532 INT INP/OBS CARE 3/75MIN Diagnoses Fall W19.XXXA Ambulatory dysfunction R26.2 Fracture of neck of left humerus S42.212A Leukocytosis D72.829 Hypoxia R09.02 Cognitive impairment R41.89
--- NOTE | 2025-01-01 23:44 | Emergency Department Note ---
ED Visit Note I was consulted by Maryann Garcia PA-C. I personally made/approved the management plan and take responsibility for the patient management. I performed a substantive portion of the visit. This includes the aspects of Reviewing the imaging studies. I did examine the patient and spoke with her daughters at the bedside. She was informed that the left humeral head is fractured. I do feel the patient will likely require hospitalization and a rehabilitation stay. Please review Maryann Garcia PA-C's notes for further details of the history, physical and visit. .
[2025-01-02] MEDS ORDERED: oxyCODONE HCL IR 5 MG TAB (IMMEDIATE RELEASE) PO PRN (01:32)
[2025-01-02] MEDS ORDERED: DOCUSATE SODIUM 100 MG CAP PO PRN (01:32)
[2025-01-02] MEDS ORDERED: ONDANSETRON INJ 2 MG/ML 2 ML VIAL IV PRN (01:32)
[2025-01-02] MEDS ORDERED: MELATONIN 3 MG TAB PO PRN (01:32)
[2025-01-02] MEDS ORDERED: ACETAMINOPHEN 325 MG TAB PO PRN (01:32)
[2025-01-02 07:11] LABS: Basophils # (auto) 0.04 K/uL (0.00-0.20); Basophils % (auto) 0.3 %; Eosinophils # (auto) 0.01 K/uL (0.00-0.50); Eosinophils % (auto) 0.1 %; Hematocrit (blood only) 39.5 % (37.0-47.0); Hemoglobin 12.9 g/dl (12.0-16.0); Immature Granulocytes # (auto) 0.05 K/uL (0.01-0.20); Immature Granulocytes % (auto) 0.3 %; Lymphocytes # (auto) 1.07 K/uL (1.20-3.40); Lymphocytes % (auto) 7.5 %; Mean Corpuscular Hemoglobin 27.9 pg (25.0-34.0); Mean Corpuscular Hgb Conc 32.7 g/dL (32.0-36.0); Mean Corpuscular Volume 85.5 fL (80.0-100.0); Monocytes # (auto) 0.78 K/uL (0.11-0.59); Monocytes % (auto) 5.4 %; Neutrophils % (auto) 86.4 %; Platelet Count 148 K/uL (130-400); RDW Standard Deviation 43.2 fL (36.4-46.3); Red Blood Count 4.62 M/uL (4.20-5.40); White Blood Count 14.35 K/ul (4.8-10.8)
[2025-01-02 08:07] LABS: Anion Gap 6 (3-11); Calcium 8.9 mg/dl (8.6-10.3); Carbon Dioxide 31 mmol/L (21-32); Chloride 105 mmol/L (98-107); Potassium 4.1 mmol/L (3.5-5.1); Sodium 142 mmol/L (136-145)
[2025-01-02 08:12] LABS: BUN Creatinine Ratio 38.6 (10-20); Blood Urea Nitrogen 22 mg/dl (6-23); Glucose 126 mg/dl (70-99(Fasting))
[2025-01-02] MEDS: ACETAMINOPHEN 500 MG TAB PO SCH (08:18)
[2025-01-02] MEDS: LEVOTHYROXINE SODIUM 75 MCG TABLET PO SCH (08:19)
[2025-01-02] MEDS: FERROUS SULFATE 325 MG TAB PO SCH (08:19)
[2025-01-02] MEDS: ESCITALOPRAM OXALATE 10 MG TAB PO SCH (08:19)
--- NOTE | 2025-01-02 10:49 | Orthopedic Consultation ---
<Statement entered by Brice Morton MD - 01/02/25 16:57> Patient seen and evaluated. Status post fall with nondisplaced left proximal humerus fracture. Spoke to her daughters. Arm in the sling. Her distal neurovascular function and circulation are intact. Plan is sling and swath. Gradually mobilize. She may need a retirement disposition. 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 4 to 6 weeks in the sling. Date of Consultation January 02, 2025 Assessment & Plan (1) Fracture of neck of left humerus: Acute injury, ground-level fall yesterday evening resulting in a mildly displaced comminuted impacted fracture of the left humeral neck. All other imaging negative. Patient does have history of baseline dementia. She lives with one of her daughters, and has 2 other daughters in the area who help out. Examination reveals diffuse swelling to the left shoulder with significant decreased range of motion in the shoulder secondary to pain. Range of motion the elbow, wrist, and fingers is preserved. She is neurovascularly intact. Not complaining of any other pain. X-ray and CT scan of the left shoulder as above. I was able to gently remove the patient's 1 ring on her left ring finger with water-based lubricant to preempt any dependent edema that may accumulate se condary to this injury. Ring was placed in a sterile urine cup, stickered with ID sticker, and given to DARI Arciniega her nurse in the ER currently. Injury will be managed nonoperatively and followed in our office. She did not have the immobilizer portion of the sling on when I saw her, and I asked if the tech could get this for her to limit range of motion. Will check on this tomorrow. Recommend no range of motion of the left shoulder right now, nonweightbearing with the left upper extremity. She can work on active and passive range of motion of the elbow, wrist, fingers, and forearm. Recommend PT and OT to determine discharge plan. DVT prophylaxis and pain management per primary service. Ice to affected shoulder as needed for pain and swelling. Elevate arm on pillows when laying down. Will schedule outpatient follow-up in our office in 7 to 10 days. Will update discharge tab once appointment has been scheduled. I called and spoke with Melanie, one of the patient's daughters, and discussed all of this with her. She is in agreement with this plan. Will review with Dr. Morton. History of Present Illness History of Present Illness History is limited secondary to patient's baseline mental status. Stacie is an 89-year-old female with a history of cognitive impairment, osteoporosis on alendronate, hypothyroidism, hypertension, dyslipidemia, who presented to the emergency department last evening with a chief complaint of left shoulder pain secondary to ground-level fall. Workup in the emergency department included x-ray and CT imaging revealing a comminuted and impacted left humeral neck fracture. All other imaging was negative for acute injury. Patient was also found to have a leukocytosis of 15 which was felt to be likely secondary to stress. She was placed in a sling, and admitted for ongoing management. Patient uses a walker and cane at baseline. Patient lives with her daughter, Deedee, who works during the day. She has 3 daughters locally who all help manage her daily activities and living. Patient currently complaining only of pain in the left shoulder, no other complaints of pain anywhere else. She denies any numbness or tingling in her fingers and feels that she can move all of her fingers. Allergies Allergy/AdvReac Type Severity Reaction Status Date / Time No Known Allergies Allergy Verified 01/01/25 22:40 Home Medications Medication Instructions Recorded Confirmed Type levothyroxine 75 mcg tablet 75 mcg PO DAILY #90 tabs 05/14/24 01/01/25 Rx simvastatin 20 mg tablet 20 mg PO QPM #90 tabs 05/14/24 01/01/25 Rx escitalopram oxalate 10 mg tablet 10 mg PO DAILY #10 tabs 07/13/24 01/01/25 Rx alendronate 70 mg tablet (Fosamax) 70 mg PO WK 01/01/25 01/01/25 History ferrous sulfate 325 mg (65 mg 325 mg PO 3XWK 01/01/25 01/01/25 History iron) tablet Patient History Medical History Iron deficiency anemia negative colon 01/14, EGD 01/14 showed gastric erosions - resolved on follow up, negative capsule endoscopy 09/15 History of kidney stones 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) "Abnormal right breast mammogram Status post stereotactic biopsy 04/14/2016 revealing DCIS Estrogen receptor positive and progesterone receptor positive Status post lumpectomy and sentinel lymph node biopsy 05/10/2016 Stage pTis pN0 Wound dehiscence and placement of wound VAC For removal of wound VAC 06/18/2016" Surgical History History of esophagogastroduodenoscopy (EGD) H/O total hysterectomy with bilateral salpingo-oophorectomy (BSO) History of open reduction and internal fixation (ORIF) procedure (~1997) right hip fx repair History of total right hip replacement History of lumpectomy of right breast History of right breast biopsy malignant History of tooth extraction partial upper/full lower History of wisdom tooth extraction History of tonsillectomy and adenoidectomy S/P cataract surgery bilt Family History Mother Diabetes Heart disease Family history of diabetes mellitus Myocardial infarction Sister Sarcoma Suicide Family history of diabetes mellitus Ovarian cancer Father Family history of diabetes mellitus Myocardial infarction Sister Family history of diabetes mellitus Other Breast cancer No family history of adverse response to anesthesia Denies family history of Prostate cancer Lung cancer Colorectal cancer Social History Smoking Status: Never smoker Second Hand Exposure: No; Do You Dip or Chew Tobacco: No; Hx Alcohol Use: No Hx Substance Use: No Preferred Language: Kazakh Communication Ability: Effective Hearing Ability: Normal Access Liaison Required: No Beliefs That Will Affect Care: None marital status: / Current Living Situation: Family Current Living Situation Comment: Lives with daughter current occupational status: retired Feels Safe at Home: Yes Safety Concerns Comment: Fall concerns Childhood Exposure to Second-Hand Smoke: No Diet: regular caffeine: No Dental Care, Regularly: Yes Physical Activity Frequency: 3-4 Times per Week Seatbelt Use: always Sunscreen Use: Yes Assistive Devices: Cane and Walker Physical Exam Constitutional: Seen in the emergency department room C9, resting comfortably in bed. No acute distress. Cardiovascular: Radial pulses 2+ bilaterally Musculoskeletal: Left upper extremity: Sling is in place, partially removed to aid in examination. The left shoulder is diffusely swollen. No dependent edema more distal on the extremity. No ecchymotic changes. Range of motion in the left shoulder is severely limited secondary to pain. Patient able to actively flex and extend the elbow and wrist. Moves all fingers. Motor function with thumb extension, thumb opposition little finger, finger abduction, and wrist extension intact. Neurologic: No sensory deficits in bilateral fingers or axillary nerve distribution to light touch Psychiatric: Oriented to self. Results & Data Vital Signs (Past 12 Hours) Vital Signs Pulse Resp BP Pulse Ox Pulse Ox O2 Del Method O2 Del Method 01/02/25 08:27 71 16 138/67 99 Nasal Cannula 01/02/25 06:00 62 20 130/65 97 Nasal Cannula 01/02/25 02:57 94 Nasal Cannula 01/02/25 02:00 60 20 128/55 L 95 Nasal Cannula 01/02/25 01:15 72 16 138/68 99 Nasal Cannula 01/01/25 23:00 81 18 134/105 H 99 Nasal Cannula O2 Flow Rate O2 Flow Rate 01/02/25 08:27 2 01/02/25 06:00 2 01/02/25 02:57 2 01/02/25 02:00 2 01/02/25 01:15 2 01/01/25 23:00 1 Laboratory Results 01/02/25 01/01/25 01/01/25 06:46 20:29 20:24 WBC 14.35 H 15.45 H RBC 4.62 5.01 Hgb 12.9 14.1 POC Hgb 14.6 Hct 39.5 43.5 POC Hct 43 MCV 85.5 86.8 MCH 27.9 28.1 MCHC 32.7 32.4 RDW Std Deviation 43.2 43.2 RDW Coeff of Oralia 14.0 13.8 Plt Count 148 160 MPV 10.0 10.0 Immature Gran % (Auto) 0.3 0.9 Neut % (Auto) 86.4 91.6 Lymph % (Auto) 7.5 3.9 Potter % (Auto) 5.4 3.2 Eos % (Auto) 0.1 0.1 Baso % (Auto) 0.3 0.3 Neut # (Auto) 12.40 H 14.15 H Lymph # (Auto) 1.07 L 0.61 L Potter # (Auto) 0.78 H 0.50 Eos # (Auto) 0.01 0.01 Baso # (Auto) 0.04 0.04 Immature Gran # (Auto) 0.05 0.14 POC Sodium 142 Sodium 142 140 POC Potassium 3.8 Potassium 4.1 3.9 POC Chloride 104 Chloride 105 105 Carbon Dioxide 31 30 POC Total CO2 27 Anion Gap 6 5 POC Anion Gap 16.0 POC BUN 24 H BUN 22 24 H Creatinine 0.57 L 0.64 POC Creatinine 0.6 Est Cr Clr Drug Dosing Not Reportable Not Reportable eGFR 87.35 84.95 BUN/Creatinine Ratio 38.6 H 37.5 H Glucose 126 H 130 H POC Glucose (other) 130 H Calcium 8.9 9.3 POC Ioniz Calcium Ninoska 1.14 Total Bilirubin 0.5 AST 17 ALT 9 Alkaline Phosphatase 73 Troponin I High Sens < 2.3 Total Protein 7.0 Albumin 4.6 Globulin 2.4 L Albumin/Globulin Ratio 1.9 Diagnostic Findings Humerus X-Ray 01/01/25 17:43 Clinical History: Pain after fall 3 views of the left humerus are submitted for review. Findings: There is an acute mildly displaced fracture of the humeral neck. No other definite fracture is seen No subluxation or dislocation is seen. There is mild acromioclavicular osteoarthritis. There is osteopenia. No other osseous abnormality is identified. There are no radiopaque foreign bodies. Impression: Acute left humeral neck fracture ACT 112: Positive. There are findings on this exam that require communication between the performing entity and the patient following Patient Test Result Information Act ([place] ACT 112) guidelines. Electronically signed by Mohinder Hansen 01-01-2025 6:35 PM Shoulder X-Ray 01/01/25 17:43 Clinical History: Pain after fall 3 views of the left shoulder are submitted for review. Findings: There is an acute mildly displaced fracture of the humeral neck No subluxation or dislocation is seen. There is mild acromioclavicular osteoarthritis. There is osteopenia. No other osseous abnormality is identified. There are no radiopaque foreign bodies. Impression: Acute fracture of the left humeral neck ACT 112: Positive. There are findings on this exam that require communication between the performing entity and the patient following Patient Test Result Information Act ([place] ACT 112) guidelines. Electronically signed by Mohinder Hansen 01-01-2025 6:34 PM Wrist X-Ray 01/01/25 17:43 Clinical History: Pain after fall 2 views of the left wrist are submitted for review. Findings: No fracture or dislocation is seen. No significant arthritic changes are noted. There is osteopenia. No other osseous abnormality is identified. There are no radiopaque foreign bodies. Impression: No definite fracture after fall Electronically signed by Mohinder Hansen 01-01-2025 6:33 PM Abdomen/Pelvis CT 01/01/25 20:03 Exam(s): CT ABDOMEN + PELVIS With Contrast IV Amt: 90 ml optiray 320 EXAM: CT Abdomen and Pelvis With Intravenous Contrast CLINICAL HISTORY: Reason for exam: fall. TECHNIQUE: Axial computed tomography images of the abdomen and pelvis with intravenous contrast. Automated exposure control was utilized for the study. A dose lowering technique was utilized adhering to the principles of ALARA. Moderate artifact body habitus, breathing/patient motion and bilateral arms in the [id number]. CTDI is mGy and DLP is mGy-cm. CONTRAST: Patient received 90 ml optiray 320 of IV contrast COMPARISON: None. FINDINGS: Liver: No injury. Gallbladder and bile ducts: Normal gallbladder. No ductal dilation. Pancreas: No ductal dilation. Spleen: No laceration. Adrenals: Unremarkable. No mass. Kidneys and ureters: No injury. Stomach and bowel: No obstruction. Intraperitoneal space: No free air or fluid. Bones/joints: Metal artifact from right hip prosthesis. No acute fracture. Soft tissues: Unremarkable. Vasculature: No abdominal aortic aneurysm. Lymph nodes: No enlarged lymph nodes. Bladder: No injury. Reproductive: Unremarkable as visualized. IMPRESSION: 1. No parenchymal laceration or hemoperitoneum. Electronically signed by: Madelin Hoffmann M.D. 01/01/25 22:[address] 01/01/25 20:03 Exam(s): CT C SPINE EXAM: CT Cervical Spine Without Intravenous Contrast CLINICAL HISTORY: Reason for exam: fall. TECHNIQUE: Axial computed tomography images of the cervical spine without intravenous contrast. Automated exposure control was utilized for the study. A dose lowering technique was utilized adhering to the principles of ALARA. CTDI is mGy and DLP is mGy-cm. COMPARISON: None. FINDINGS: Vertebrae: No acute fracture. Discs/spinal canal/neural foramina: Moderate degenerative disc and facet disease, commensurate with age. Soft tissues: Unremarkable. IMPRESSION: 1. No fracture or acute bony abnormality. Electronically signed by: Madelin Hoffmann M.D. 01/01/25 22:[address] 01/01/25 20:03 Exam(s): CT CHEST With Contrast IV Amt: 90 ml optiray 320 EXAM: CT Chest With Intravenous Contrast CLINICAL HISTORY: Reason for exam: fall. TECHNIQUE: Axial computed tomography images of the chest with intravenous contrast. Automated exposure control was utilized for the study. A dose lowering technique was utilized adhering to the principles of ALARA. CTDI is mGy and DLP is mGy-cm. Mild breathing/motion artifact and from bilateral arms in the [id number]. CONTRAST: Patient received 90 ml optiray 320 of IV contrast COMPARISON: None. FINDINGS: Lungs: Grossly clear, limited by breathing motion artifact. No consolidation. Pulmonary arteries: No engorgement. Aorta: No thoracic aortic aneurysm. Pleural space: No effusion. No pneumothorax. Heart: No cardiomegaly. No significant pericardial effusion. Bones/joints: Mild impacted fracture left humeral neck. No other acute fracture. Soft tissues: Moderate hiatal hernia and mild fluid in the mid/distal esophagus, nonspecific, may be from recent ingestion of food or drink. Cannot rule out gastroesophageal reflux.. Lymph nodes: No enlarged lymph nodes. IMPRESSION: 1. Moderate hiatal hernia and nonspecific esophageal fluid, GE reflux not excluded. 2. Impacted fracture left humeral neck. 3. No pneumothorax, aortic injury, or acute intrathoracic abnormality. Electronically signed by: Madelin Hoffmann M.D. 01/01/25 22:[address] 01/01/25 20:03 Exam(s): CT HEAD Without Contrast EXAM: CT Head Without Intravenous Contrast CLINICAL HISTORY: Reason for exam: fall. TECHNIQUE: Axial computed tomography images of the head/brain without intravenous contrast. Automated exposure control was utilized for the study. A dose lowering technique was utilized adhering to the principles of ALARA. Mild motion artifact. COMPARISON: None. FINDINGS: Brain: 6 mm extra-axial, hypodense nodule right frontal lobe near the vertex, incidental, probable meningioma. No mass effect or acute infarct. No acute hemorrhage. Mild atrophy and chronic white matter disease. Ventricles: No hydrocephalus or midline shift. Bones/joints: No skull fracture. Soft tissues: No scalp hematoma. Visualized Sinuses: Clear. Mastoid air cells: No mastoid effusion. IMPRESSION: 1. Mild age-related findings, and an incidental, 6 mm right frontal meningioma. 2. No skull fracture, bleed, or acute intracranial abnormality. Electronically signed by: Madelin Hoffmann M.D. 01/01/25 22:22 PM Knee X-Ray 01/01/25 20:03 Exam(s): XR RIGHT KNEE, 3 views EXAM: XR Right Knee, 3 Views CLINICAL HISTORY: Reason for exam: fall. TECHNIQUE: Three views of the right knee. COMPARISON: No relevant prior studies available. FINDINGS: Bones/joints: Partially imaged intramedullary christiana mid to distal femur. Calcifications within the distal femur metadiaphyseal junction, 2.7 x 1.2 x 1.2 cm, chronic. Minimal patellofemoral osteoarthritis. No acute fracture. No dislocation. Soft tissues: No joint effusion. IMPRESSION: 1. Previous ORIF right femur. 2. Bony calcifications distal femur, chronic. 3. No fracture or acute bony abnormality. Electronically signed by: Madelin Hoffmann M.D. 01/01/25 22:[address] 01/01/25 20:05 Exam(s): CT L SPINE With Contrast IV Amt: 90 ml optiray 320 EXAM: CT Lumbar Spine With Intravenous Contrast CLINICAL HISTORY: Reason for exam: fall. TECHNIQUE: Axial computed tomography images of the lumbar spine with intravenous contrast. Automated exposure control was utilized for the study. A dose lowering technique was utilized adhering to the principles of ALARA. CTDI is mGy and DLP is mGy-cm. 90 ML Optiray 320 given IV. Mild to moderate motion artifact. COMPARISON: None. FINDINGS: Vertebrae: No acute fracture. Osteoporosis. Discs/spinal canal/neural foramina: Severe diffuse degenerative disc disease with multilevel vacuum disc. Moderate facet hypertrophy. Soft tissues: Aortic atherosclerosis.. IMPRESSION: 1. No fracture or acute bony abnormality. Electronically signed by: Madelin Hoffmann M.D. 01/01/25 22:[address] 01/01/25 20:05 Exam(s): CT T SPINE IV Amt: 90 ml optiray 320 EXAM: CT Thoracic Spine With Intravenous Contrast CLINICAL HISTORY: Reason for exam: fall. TECHNIQUE: Axial computed tomography images of the thoracic spine with intravenous contrast. Automated exposure control was utilized for the study. A dose lowering technique was utilized adhering to the principles of ALARA. CTDI is mGy and DLP is mGy-cm. Mild breathing motion artifact. CONTRAST: Patient received 90 ml optiray 320 of IV contrast COMPARISON: None. FINDINGS: Vertebrae: No acute fracture. Incidental sclerosis T9, and discogenic endplate sclerosis thoracolumbar junction. Discs/spinal canal/neural foramina: Moderate degenerative disc disease, commensurate with age. Soft tissues: Atherosclerotic aorta and moderate hiatal hernia. Fluid in the esophagus is nonspecific, may relate to gastroesophageal reflux or recent ingestion. IMPRESSION: 1. No fracture or acute bony abnormality. 2. Hiatal hernia and questionable gastroesophageal reflux. Electronically signed by: Madelin Hoffmann M.D. 01/01/25 22:[address] 01/01/25 20:46 Exam(s): CT LEFT SHOULDER Without Contrast EXAM: CT Left Upper Extremity Without Intravenous Contrast, Shoulder CLINICAL HISTORY: Reason for exam: shoulder. TECHNIQUE: Axial computed tomography images of the left shoulder without intravenous contrast. Automated exposure control was utilized for the study. A dose lowering technique was utilized adhering to the principles of ALARA. MPR and 3D reformats are performed and reviewed. COMPARISON: Left shoulder x-ray, same day. FINDINGS: Bones/joints: Impacted and comminuted fracture left humeral neck. No other fracture. No dislocation. Soft tissues: Unremarkable. IMPRESSION: 1. Comminuted and impacted fracture left humeral neck. Electronically signed by: Madelin Hoffmann M.D. 01/01/25 22:44 PM (1) Fracture of neck of left humerus Encounter type: initial encounter Fracture type: closed Qualified Code(s): S42.212A - Unspecified displaced fracture of surgical neck of left humerus, initial encounter for closed fracture
--- NOTE | 2025-01-02 13:40 | Hospitalist Progress Note ---
Date of Service January 02, 2025 Assessment & Plan (1) Fall: (2) Ambulatory dysfunction: (3) Fracture of neck of left humerus: (4) Leukocytosis: (5) Hypoxia: (6) Cognitive impairment: Plan Patient is an 89-year-old female with a past medical history of cognitive impairment, hypertension, osteoporosis, hyperlipidemia. She presented to the ED via EMS after an unwitnessed, but fall in which her foot got stuck in a blanket when she went from sitting to standing from a chair. Diagnostic imaging in the ED revealed an impacted comminuted left humeral neck fracture. Patient admitted for ambulatory dysfunction as she uses a walker and a cane at home. Patient lives with her daughter at home and there was concerned about her being at home alone after the fall as the daughter works. #Fall/Ambulatory dysfunction/Age-related osteoporosis with current pathologic fracture, L humerus Imaging showed commuted and impacted left humeral neck fracture. Otherwise diagnostic imaging negative for acute changes Ortho consulted continue nonoperative management with LUE in sling/immobilizer. No ROM of the left shoulder for now, nonweightbearing with the LUE. Ice to left shoulder as needed for pain swelling, elevate arm on pillows when lying down. Follow-up outpatient in 7-10 days Pain regimen: Scheduled Tylenol 1,000 mg TID, ibuprofen 200 mg q4h PRN pain, oxycodone 2.5-5 mg q6h PRN breakthrough pain PT/OT consulted. Uses walker and cane at baseline Hx osteoporosis - continue alendronate at discharge #Leukocytosis WBC 15.45 on admission, slight decreased to 14.35 today - Suspect leukocytosis is due to stress demargination, no signs of acute infectious etiology, VSS, afebrile UA ordered #Hypoxia Suspect hypoxia is secondary to pain medications Chest CT negative Remains on 1 L NC. Wean O2 as able Continue incentive spirometry, continuous pulse ox #Incidental findings Head CT revealed 6mm right frontal meningioma Chest CT revealed moderate hiatal hernia Follow with PCP #Dementia continue escitalopram, promote good sleep-wake cycles, melatonin as needed #Hypothyroidism continue levothyroxine #Hyperlipidemia continue simvastatin VTE ppx: SCDs Dispo: Continue inpatient stay while awaiting PT/OT evals to further determine dispo Updated daughter at bedside Admission and Anticipated Discharge Date Admission Date: January 02, 2025 Subjective Patient seen and evaluated at bedside in the ED with her daughter present. She reports her pain is well-controlled. She is anxious when discussing her fall and repeatedly states that "this is not common for me." Reassurance provided. We discussed the current recommendations from Ortho, but still waiting for final recommendations from Dr. Morton. We also discussed that evaluations from PT/OT will determine her disposition from the hospital. She denies any additional complaints or concerns at this time. Physical Exam Physical Exam: General: No acute distress, nondiaphoretic, well-developed, well-nourished. Cardiac: Regular rate and rhythm without murmurs gallops or rubs. Pulm: Clear to auscultation bilaterally without wheezes, rales or rhonchi. No respiratory distress. 93% on 1 L NC. Abdominal: Soft, nontender, nondistended. Bowel sounds present. Neuro: A&O x2 (person, intermittently to place). No focal neurological deficits. MSK: LUE in sling. Left shoulder with significant swelling and limited ROM. Wrist/finger ROM and sensation intact. Cap refill <3 seconds. Results & Data Results & Data Vital Signs (Past 12 Hours) Vital Signs Pulse Resp BP Pulse Ox Pulse Ox O2 Del Method O2 Del Method 01/02/25 13:34 73 18 125/56 L 93 Nasal Cannula 01/02/25 11:14 61 16 121/56 L 93 Nasal Cannula 01/02/25 08:27 71 16 138/67 99 Nasal Cannula 01/02/25 06:00 62 20 130/65 97 Nasal Cannula 01/02/25 02:57 94 Nasal Cannula 01/02/25 02:00 60 20 128/55 L 95 Nasal Cannula O2 Flow Rate O2 Flow Rate 01/02/25 13:34 2 01/02/25 11:14 2 01/02/25 08:27 2 01/02/25 06:00 2 01/02/25 02:57 2 01/02/25 02:00 2 Laboratory Results Reviewed CBC with differential Reviewed BMP Diagnostic Findings Reviewed imaging from admission PG Care Time/CCT Total # of Minutes Spent Total Time Spent with Patient: Total time spent is greater than 50% in coordination of care (as documented) at patient's floor/unit and/or counseling patient: Coding Level of Care Code 50640 SUB INP/OBS CARE 2/35MIN Diagnoses Fall W19.XXXA Ambulatory dysfunction R26.2 Closed fracture of neck of left humerus, initial encounter S42.212A Encounter type: initial encounter Fracture type: closed Leukocytosis D72.829 Hypoxia R09.02 Cognitive impairment R41.89 (3) Fracture of neck of left humerus Encounter type: initial encounter Fracture type: closed Qualified Code(s): S42.212A - Unspecified displaced fracture of surgical neck of left humerus, initial encounter for closed fracture
[2025-01-02] MEDS: SIMVASTATIN 20 MG TAB PO SCH (20:02)
[2025-01-03 07:40] LABS: Hematocrit (blood only) 35.3 % (37.0-47.0); Hemoglobin 11.5 g/dl (12.0-16.0); Mean Corpuscular Hgb Conc 32.6 g/dL (32.0-36.0); Mean Corpuscular Volume 86.1 fL (80.0-100.0); Mean Platelet Volume 10.5 fL (9.4-12.4); Platelet Count 121 K/uL (130-400); RDW Coefficient of Variation 14.2 % (11.5-14.5); RDW Standard Deviation 44.6 fL (36.4-46.3); White Blood Count 9.71 K/ul (4.8-10.8)
[2025-01-03] MEDS: oxyCODONE HCL IR 5 MG TAB (IMMEDIATE RELEASE) PO PRN (11:06)
--- NOTE | 2025-01-03 11:10 | Orthopedic Progress Note ---
Date of Service January 03, 2025 Assessment & Plan (1) Closed fracture of neck of left humerus: Plan: The patient was educated regarding these findings. Conservative care measures were discussed. She may participate in PT while only using the fingers, wrist, and elbow. She should not have motion of the shoulder. We will continue to follow during her hospital stay. Continue with ice application as needed for pain control. Also continue with oral analgesics as needed. Follow-up in the office as scheduled. Admission and Anticipated Discharge Date Admission Date: January 02, 2025 Subjective This 89-year-old female is seen today in her room. She currently complains of mild discomfort in her left shoulder, though she was just washed and changed by nursing staff. She reports her pain is otherwise well-controlled. No other discomfort at this point. Physical Exam Physical Exam: General: Well developed, well-nourished, obese elderly female, in no acute distress. Laying in bed. Alert and oriented. Skin: Warm dry with good turgor. No rashes. No ecchymosis present around the shoulder yet. Musculoskeletal: The patient has intact motor function of the fingers, elbow, and wrist. Shoulder range of motion was not attempted. There is no discomfort with palpation over the anterior or posterior aspects of the glenohumeral joint or deltoid. No pain with palpation over the AC joint, including the clavicle. Neurologic: Gross sensation is intact across the left arm by soft touch. Peripheral pulses are 2+. Results & Data Vital Signs (Past 12 Hours) Vital Signs Temp Pulse Resp BP Pulse Ox O2 Del Method 01/03/25 10:45 Room Air 01/03/25 07:18 36.6 C 73 16 144/76 H 95 Room Air Laboratory Results CBC obtained today shows a white count of 9.7. H&H of 11.5 and 35.3. Platelets of 121,000. (1) Closed fracture of neck of left humerus Encounter type: initial encounter Qualified Code(s): S42.212A - Unspecified displaced fracture of surgical neck of left humerus, initial encounter for closed fracture
--- NOTE | 2025-01-03 13:39 | Hospitalist Progress Note ---
Date of Service January 03, 2025 Assessment & Plan (1) Fracture of neck of left humerus: (2) Ambulatory dysfunction: (3) Fall: (4) Cognitive impairment: Plan Patient is an 89-year-old female with a past medical history of cognitive impairment, hypertension, osteoporosis, hyperlipidemia. She presented to the ED via EMS after an unwitnessed, but fall in which her foot got stuck in a blanket when she went from sitting to standing from a chair. Diagnostic imaging in the ED revealed an impacted comminuted left humeral neck fracture. Patient admitted for ambulatory dysfunction as she uses a walker and a cane at home. Patient lives with her daughter at home and there was concerned about her being at home alone after the fall as the daughter works. #Fall/Ambulatory dysfunction/Age-related osteoporosis with current pathologic fracture, L humerus Imaging showed commuted and impacted left humeral neck fracture. Otherwise diagnostic imaging negative for acute changes Ortho consulted continue nonoperative management with LUE in sling/immobilizer. No ROM of the left shoulder for now, nonweightbearing with the LUE. Ice to left shoulder as needed for pain swelling, elevate arm on pillows when lying down. Follow-up outpatient in 7-10 days Pain regimen: Scheduled Tylenol 1,000 mg TID, ibuprofen 200 mg q4h PRN pain, oxycodone 2.5-5 mg q6h PRN breakthrough pain PT/OT recommending rehab/[facility]. 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 Referral for [facility] Discussed discharge planning with CM Admission and Anticipated Discharge Date Admission Date: January 02, 2025 Subjective Patient seen and evaluated at bedside. She reports that her left shoulder pain is well controlled with medication. She states she slept well last night and has a good appetite. PT/OT are recommending [facility] or rehab, patient unsure what she would like and asked for case management to discuss further with her daughters. No additional complaints or concerns at this time. Physical Exam Physical Exam: General: No acute distress, nondiaphoretic, well-developed, well-nourished. Cardiac: Regular rate and rhythm without murmurs gallops or rubs. Pulm: Clear to auscultation bilaterally without wheezes, rales or rhonchi. No respiratory distress. 93% on 1 L NC. Abdominal: Soft, nontender, nondistended. Bowel sounds present. Neuro: A&O x2 (person, intermittently to place). No focal neurological deficits. MSK: LUE in sling. Left shoulder with significant swelling and limited ROM. Wrist/finger ROM and sensation intact. Cap refill <3 seconds. Results & Data Results & Data Vital Signs (Past 12 Hours) Vital Signs Temp Pulse Resp BP Pulse Ox O2 Del Method 01/03/25 10:45 Room Air 01/03/25 07:18 97.9 F 73 16 144/76 H 95 Room Air Laboratory Results Reviewed CBC PG Care Time/CCT Total # of Minutes Spent Total Time Spent with Patient: Total time spent is greater than 50% in coordination of care (as documented) at patient's floor/unit and/or counseling patient: Coding Level of Care Code 47493 SUB INP/OBS CARE 2/35MIN Diagnoses Closed fracture of neck of left humerus, initial encounter S42.212A Encounter type: initial encounter Fracture type: closed Ambulatory dysfunction R26.2 Fall W19.XXXA Cognitive impairment R41.89 (1) Fracture of neck of left humerus Encounter type: initial encounter Fracture type: closed Qualified Code(s): S42.212A - Unspecified displaced fracture of surgical neck of left humerus, initial encounter for closed fracture
--- NOTE | 2025-01-03 21:32 | Electrocardiogram Report ---
Test Reason : Blood Pressure : */* mmHG Vent. Rate : 73 BPM Atrial Rate : 73 BPM P-R Int : 144 ms QRS Dur : 76 ms QT Int : 392 ms P-R-T Axes : -17 33 42 degrees QTcB Int : 431 ms Normal sinus rhythm Normal ECG When compared with ECG of 10-Aug-2023 14:07, No significant change was found Confirmed by Ayaan Akins ([id number]) on 01/03/2025 9:32:43 PM Referred By: REFERRED SELF Confirmed By: Ayaan Akins
[2025-01-04] MEDS: IBUPROFEN 200 MG TAB PO PRN (02:25)
[2025-01-04 06:50] LABS: Hematocrit (blood only) 36.1 % (37.0-47.0); Hemoglobin 11.8 g/dl (12.0-16.0); Mean Corpuscular Hemoglobin 28.2 pg (25.0-34.0); Mean Corpuscular Hgb Conc 32.7 g/dL (32.0-36.0); Mean Corpuscular Volume 86.2 fL (80.0-100.0); Mean Platelet Volume 10.4 fL (9.4-12.4); Platelet Count 115 K/uL (130-400); RDW Standard Deviation 43.8 fL (36.4-46.3); Red Blood Count 4.19 M/uL (4.20-5.40); White Blood Count 8.53 K/ul (4.8-10.8)
[2025-01-04 08:05] VITALS: RESP 21
--- NOTE | 2025-01-04 10:07 | Orthopedic Progress Note ---
Date of Service January 04, 2025 Assessment & Plan (1) Closed fracture of neck of left humerus: Plan: The patient was educated regarding these findings. Conservative care measures were discussed. Ice with easy wrap Sling and swath x 6 weeks Patient will either need to go to a [facility] or [facility] for rehab. She states that she thinks she has been there before. She may participate in PT while only using the fingers, wrist, and elbow. She should not have motion of the shoulder. Continue with ice application as needed for pain control. Also continue with oral analgesics as needed. Follow-up in the office as scheduled. With questions contact our clinic at [phone] Orthopedically patient is stable for discharge. Case management is processing discharge care Admission and Anticipated Discharge Date Admission Date: January 02, 2025 Subjective This 89-year-old female seen today for follow-up of a left proximal humerus fracture. 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 She does not complain of any discomfort in her left shoulder. The sling and swath are currently in place. Patient does have edema over the anterior aspect of the shoulder with some slight ecchymosis in the axillary fold. She states she is very hesitant to move any part of the left upper extremity. She also wonders why she has not seen her daughters. Currently she denies chest pain, shortness of breath, nausea, vomiting, diarrhea or difficulty voiding. Review of Systems Review of Systems: All systems reviewed & are unremarkable except as noted in Subjective Physical Exam Physical Exam: Left upper extremity: Patient does have some tenderness to palpation over the proximal humerus. There is visible edema over the anterolateral aspect of the shoulder and ecchymosis in the axillary fold. She is able to make complete fist. She is able to squeeze my fingers with a firm grasp. She tolerates passive flexion and extension as well as ulnar and radial deviation of her wrist without discomfort. She is able to resist extension at the IP and MCP joint of her thumb. She is very hesitant to move her elbow. Passively I was able to get her to about 10 degrees short of terminal extension and slightly beyond 90 degrees of flexion due to her resisting. I did not attempt shoulder range of motion due to her fracture. Her peripheral pulses were 2+. She was able to detect light sensation to touch over the pads of all digits. Results & Data Vital Signs (Past 12 Hours) Vital Signs Temp Pulse Pulse Resp BP Pulse Ox O2 Del Method 01/04/25 08:01 36.4 C 67 76 21 159/75 H 90 Room Air Diagnostic Findings Laboratory Results WBC 8.53 K/ul (4.8-10.8) 01/04/25 05:51 RBC 4.19 M/uL (4.20-5.40) L 01/04/25 05:51 Hgb 11.8 g/dl (12.0-16.0) L 01/04/25 05:51 POC Hgb 14.6 g/dl (12.0-16.0) 01/01/25 20:29 Hct 36.1 % (37.0-47.0) L 01/04/25 05:51 POC Hct 43 % (37-47) 01/01/25 20:29 MCV 86.2 fL (80.0-100.0) 01/04/25 05:51 MCH 28.2 pg (25.0-34.0) 01/04/25 05:51 MCHC 32.7 g/dL (32.0-36.0) 01/04/25 05:51 RDW Std Deviation 43.8 fL (36.4-46.3) 01/04/25 05:51 RDW Coeff of Oralia 14.0 % (11.5-14.5) 01/04/25 05:51 Plt Count 115 K/uL (130-400) L 01/04/25 05:51 MPV 10.4 fL (9.4-12.4) 01/04/25 05:51 Immature Gran % (Auto) 0.3 % 01/02/25 06:46 Neut % (Auto) 86.4 % 01/02/25 06:46 Lymph % (Auto) 7.5 % 01/02/25 06:46 Dillingham % (Auto) 5.4 % 01/02/25 06:46 Eos % (Auto) 0.1 % 01/02/25 06:46 Baso % (Auto) 0.3 % 01/02/25 06:46 Neut # (Auto) 12.40 K/uL (1.40-6.50) H 01/02/25 06:46 Lymph # (Auto) 1.07 K/uL (1.20-3.40) L 01/02/25 06:46 Dillingham # (Auto) 0.78 K/uL (0.11-0.59) H 01/02/25 06:46 Eos # (Auto) 0.01 K/uL (0.00-0.50) 01/02/25 06:46 Baso # (Auto) 0.04 K/uL (0.00-0.20) 01/02/25 06:46 Immature Gran # (Auto) 0.05 K/uL (0.01-0.20) 01/02/25 06:46 POC Sodium 142 mmol/L (135-144) 01/01/25 20:29 Sodium 142 mmol/L (136-145) 01/02/25 06:46 POC Potassium 3.8 mmol/L (3.3-5.0) 01/01/25 20:29 Potassium 4.1 mmol/L (3.5-5.1) 01/02/25 06:46 POC Chloride 104 mmol/L (101-112) 01/01/25 20:29 Chloride 105 mmol/L (98-107) 01/02/25 06:46 Carbon Dioxide 31 mmol/L (21-32) 01/02/25 06:46 POC Total CO2 27 mmol/L (24-31) 01/01/25 20:29 Anion Gap 6 (3-11) 01/02/25 06:46 POC Anion Gap 16.0 mmol/L (16-25) 01/01/25 20:29 POC BUN 24 mg/dl (7-18) H 01/01/25 20:29 BUN 22 mg/dl (6-23) 01/02/25 06:46 Creatinine 0.57 mg/dl (0.6-1.2) L 01/02/25 06:46 POC Creatinine 0.6 mg/dl (0.6-1.3) 01/01/25 20:29 Est Cr Clr Drug Dosing Not Reportable 01/02/25 06:46 eGFR 87.35 01/02/25 06:46 BUN/Creatinine Ratio 38.6 (10-20) H 01/02/25 06:46 Glucose 126 mg/dl (70-99(Fasting)) H 01/02/25 06:46 POC Glucose (other) 130 mg/dl (70-99) H 01/01/25 20:29 Calcium 8.9 mg/dl (8.6-10.3) 01/02/25 06:46 POC Ioniz Calcium Ninoska 1.14 mmol/l (1.12-1.32) 01/01/25 20:29 Total Bilirubin 0.5 mg/dl (0.2-1.0) 01/01/25 20:24 AST 17 U/L (13-39) 01/01/25 20:24 ALT 9 U/L (7-52) 01/01/25 20:24 Alkaline Phosphatase 73 U/L (34-104) 01/01/25 20:24 Troponin I High Sens < 2.3 pg/ml (0-14) 01/01/25 20:24 Total Protein 7.0 gm/dl (6.0-8.3) 01/01/25 20:24 Albumin 4.6 gm/dl (3.4-5.0) 01/01/25 20:24 Globulin 2.4 gm/dl (2.5-4.0) L 01/01/25 20:24 Albumin/Globulin Ratio 1.9 (0.9-2) 01/01/25 20:24 Impressions Humerus X-Ray 01/01/25 17:43 Clinical History: Pain after fall 3 views of the left humerus are submitted for review. Findings: There is an acute mildly displaced fracture of the humeral neck. No other definite fracture is seen No subluxation or dislocation is seen. There is mild acromioclavicular osteoarthritis. There is osteopenia. No other osseous abnormality is identified. There are no radiopaque foreign bodies. Impression: Acute left humeral neck fracture ACT 112: Positive. There are findings on this exam that require communication between the performing entity and the patient following Patient Test Result Information Act ([place] ACT 112) guidelines. Electronically signed by Mohinder Hansen 01-01-2025 6:35 PM Shoulder X-Ray 01/01/25 17:43 Clinical History: Pain after fall 3 views of the left shoulder are submitted for review. Findings: There is an acute mildly displaced fracture of the humeral neck No subluxation or dislocation is seen. There is mild acromioclavicular osteoarthritis. There is osteopenia. No other osseous abnormality is identified. There are no radiopaque foreign bodies. Impression: Acute fracture of the left humeral neck ACT 112: Positive. There are findings on this exam that require communication between the performing entity and the patient following Patient Test Result Information Act ([place] ACT 112) guidelines. Electronically signed by Mohinder Hansen 01-01-2025 6:34 PM Wrist X-Ray 01/01/25 17:43 Clinical History: Pain after fall 2 views of the left wrist are submitted for review. Findings: No fracture or dislocation is seen. No significant arthritic changes are noted. There is osteopenia. No other osseous abnormality is identified. There are no radiopaque foreign bodies. Impression: No definite fracture after fall Electronically signed by Mohinder Hansen 01-01-2025 6:33 PM Abdomen/Pelvis CT 01/01/25 20:03 Exam(s): CT ABDOMEN + PELVIS With Contrast IV Amt: 90 ml optiray 320 EXAM: CT Abdomen and Pelvis With Intravenous Contrast CLINICAL HISTORY: Reason for exam: fall. TECHNIQUE: Axial computed tomography images of the abdomen and pelvis with intravenous contrast. Automated exposure control was utilized for the study. A dose lowering technique was utilized adhering to the principles of ALARA. Moderate artifact body habitus, breathing/patient motion and bilateral arms in the [id number]. CTDI is mGy and DLP is mGy-cm. CONTRAST: Patient received 90 ml optiray 320 of IV contrast COMPARISON: None. FINDINGS: Liver: No injury. Gallbladder and bile ducts: Normal gallbladder. No ductal dilation. Pancreas: No ductal dilation. Spleen: No laceration. Adrenals: Unremarkable. No mass. Kidneys and ureters: No injury. Stomach and bowel: No obstruction. Intraperitoneal space: No free air or fluid. Bones/joints: Metal artifact from right hip prosthesis. No acute fracture. Soft tissues: Unremarkable. Vasculature: No abdominal aortic aneurysm. Lymph nodes: No enlarged lymph nodes. Bladder: No injury. Reproductive: Unremarkable as visualized. IMPRESSION: 1. No parenchymal laceration or hemoperitoneum. Electronically signed by: Madelin Hoffmann M.D. 01/01/25 22:[address] 01/01/25 20:03 Exam(s): CT C SPINE EXAM: CT Cervical Spine Without Intravenous Contrast CLINICAL HISTORY: Reason for exam: fall. TECHNIQUE: Axial computed tomography images of the cervical spine without intravenous contrast. Automated exposure control was utilized for the study. A dose lowering technique was utilized adhering to the principles of ALARA. CTDI is mGy and DLP is mGy-cm. COMPARISON: None. FINDINGS: Vertebrae: No acute fracture. Discs/spinal canal/neural foramina: Moderate degenerative disc and facet disease, commensurate with age. Soft tissues: Unremarkable. IMPRESSION: 1. No fracture or acute bony abnormality. Electronically signed by: Madelin Hoffmann M.D. 01/01/25 22:[address] 01/01/25 20:03 Exam(s): CT CHEST With Contrast IV Amt: 90 ml optiray 320 EXAM: CT Chest With Intravenous Contrast CLINICAL HISTORY: Reason for exam: fall. TECHNIQUE: Axial computed tomography images of the chest with intravenous contrast. Automated exposure control was utilized for the study. A dose lowering technique was utilized adhering to the principles of ALARA. CTDI is mGy and DLP is mGy-cm. Mild breathing/motion artifact and from bilateral arms in the [id number]. CONTRAST: Patient received 90 ml optiray 320 of IV contrast COMPARISON: None. FINDINGS: Lungs: Grossly clear, limited by breathing motion artifact. No consolidation. Pulmonary arteries: No engorgement. Aorta: No thoracic aortic aneurysm. Pleural space: No effusion. No pneumothorax. Heart: No cardiomegaly. No significant pericardial effusion. Bones/joints: Mild impacted fracture left humeral neck. No other acute fracture. Soft tissues: Moderate hiatal hernia and mild fluid in the mid/distal esophagus, nonspecific, may be from recent ingestion of food or drink. Cannot rule out gastroesophageal reflux.. Lymph nodes: No enlarged lymph nodes. IMPRESSION: 1. Moderate hiatal hernia and nonspecific esophageal fluid, GE reflux not excluded. 2. Impacted fracture left humeral neck. 3. No pneumothorax, aortic injury, or acute intrathoracic abnormality. Electronically signed by: Madelin Hoffmann M.D. 01/01/25 22:[address] 01/01/25 20:03 Exam(s): CT HEAD Without Contrast EXAM: CT Head Without Intravenous Contrast CLINICAL HISTORY: Reason for exam: fall. TECHNIQUE: Axial computed tomography images of the head/brain without intravenous contrast. Automated exposure control was utilized for the study. A dose lowering technique was utilized adhering to the principles of ALARA. Mild motion artifact. COMPARISON: None. FINDINGS: Brain: 6 mm extra-axial, hypodense nodule right frontal lobe near the vertex, incidental, probable meningioma. No mass effect or acute infarct. No acute hemorrhage. Mild atrophy and chronic white matter disease. Ventricles: No hydrocephalus or midline shift. Bones/joints: No skull fracture. Soft tissues: No scalp hematoma. Visualized Sinuses: Clear. Mastoid air cells: No mastoid effusion. IMPRESSION: 1. Mild age-related findings, and an incidental, 6 mm right frontal meningioma. 2. No skull fracture, bleed, or acute intracranial abnormality. Electronically signed by: Madelin Hoffmann M.D. 01/01/25 22:22 PM Knee X-Ray 01/01/25 20:03 Exam(s): XR RIGHT KNEE, 3 views EXAM: XR Right Knee, 3 Views CLINICAL HISTORY: Reason for exam: fall. TECHNIQUE: Three views of the right knee. COMPARISON: No relevant prior studies available. FINDINGS: Bones/joints: Partially imaged intramedullary christiana mid to distal femur. Calcifications within the distal femur metadiaphyseal junction, 2.7 x 1.2 x 1.2 cm, chronic. Minimal patellofemoral osteoarthritis. No acute fracture. No dislocation. Soft tissues: No joint effusion. IMPRESSION: 1. Previous ORIF right femur. 2. Bony calcifications distal femur, chronic. 3. No fracture or acute bony abnormality. Electronically signed by: Madelin Hoffmann M.D. 01/01/25 22:[address] 01/01/25 20:05 Exam(s): CT L SPINE With Contrast IV Amt: 90 ml optiray 320 EXAM: CT Lumbar Spine With Intravenous Contrast CLINICAL HISTORY: Reason for exam: fall. TECHNIQUE: Axial computed tomography images of the lumbar spine with intravenous contrast. Automated exposure control was utilized for the study. A dose lowering technique was utilized adhering to the principles of ALARA. CTDI is mGy and DLP is mGy-cm. 90 ML Optiray 320 given IV. Mild to moderate motion artifact. COMPARISON: None. FINDINGS: Vertebrae: No acute fracture. Osteoporosis. Discs/spinal canal/neural foramina: Severe diffuse degenerative disc disease with multilevel vacuum disc. Moderate facet hypertrophy. Soft tissues: Aortic atherosclerosis.. IMPRESSION: 1. No fracture or acute bony abnormality. Electronically signed by: Madelin Hoffmann M.D. 01/01/25 22:[address] 01/01/25 20:05 Exam(s): CT T SPINE IV Amt: 90 ml optiray 320 EXAM: CT Thoracic Spine With Intravenous Contrast CLINICAL HISTORY: Reason for exam: fall. TECHNIQUE: Axial computed tomography images of the thoracic spine with intravenous contrast. Automated exposure control was utilized for the study. A dose lowering technique was utilized adhering to the principles of ALARA. CTDI is mGy and DLP is mGy-cm. Mild breathing motion artifact. CONTRAST: Patient received 90 ml optiray 320 of IV contrast COMPARISON: None. FINDINGS: Vertebrae: No acute fracture. Incidental sclerosis T9, and discogenic endplate sclerosis thoracolumbar junction. Discs/spinal canal/neural foramina: Moderate degenerative disc disease, commensurate with age. Soft tissues: Atherosclerotic aorta and moderate hiatal hernia. Fluid in the esophagus is nonspecific, may relate to gastroesophageal reflux or recent ingestion. IMPRESSION: 1. No fracture or acute bony abnormality. 2. Hiatal hernia and questionable gastroesophageal reflux. Electronically signed by: Madelin Hoffmann M.D. 01/01/25 22:[address] 01/01/25 20:46 Exam(s): CT LEFT SHOULDER Without Contrast EXAM: CT Left Upper Extremity Without Intravenous Contrast, Shoulder CLINICAL HISTORY: Reason for exam: shoulder. TECHNIQUE: Axial computed tomography images of the left shoulder without intravenous contrast. Automated exposure control was utilized for the study. A dose lowering technique was utilized adhering to the principles of ALARA. MPR and 3D reformats are performed and reviewed. COMPARISON: Left shoulder x-ray, same day. FINDINGS: Bones/joints: Impacted and comminuted fracture left humeral neck. No other fracture. No dislocation. Soft tissues: Unremarkable. IMPRESSION: 1. Comminuted and impacted fracture left humeral neck. Electronically signed by: Madelin Hoffmann M.D. 01/01/25 22:44 PM (1) Closed fracture of neck of left humerus Encounter type: initial encounter Qualified Code(s): S42.212A - Unspecified displaced fracture of surgical neck of left humerus, initial encounter for closed fracture
[2025-01-04 10:38] LABS: Appearance Urine Clear (Clear); Bilirubin Urine Negative (Negative); Blood Urine Negative (Negative); Color Urine Yellow; Glucose Urine UA Negative (Negative); Ketones Urine Negative (Negative); Leukocyte Esterase Urine Negative (Negative); Nitrite Urine Negative (Negative); Protein Urine Negative (Negative); Specific Gravity Urine 1.007 (1.000-1.030); Urobilinogen Urine Negative (Negative)
[2025-01-04 11:18] VITALS: BP 142/72; PULSE 71; TEMP 98.3; O2SAT 95
--- NOTE | 2025-01-04 17:42 | Discharge Summary ---
Discharge Summary Date of Service January 04, 2025 Principal Dx & Hospital Course #1 = Principal Diagnosis (1) Fracture of neck of left humerus: (2) Ambulatory dysfunction: (3) Fall: (4) Cognitive impairment: Plan Patient is an 89-year-old female with a past medical history of cognitive impairment, hypertension, osteoporosis, hyperlipidemia. She presented to the ED via EMS after an unwitnessed, but fall in which her foot got stuck in a blanket when she went from sitting to standing from a chair. Diagnostic imaging in the ED revealed an impacted comminuted left humeral neck fracture. Patient admitted for ambulatory dysfunction as she uses a walker and a cane at home. Patient lives with her daughter at home and there was concerned about her being at home alone after the fall as the daughter works. #Fall/Ambulatory dysfunction/Age-related osteoporosis with current pathologic fracture, L humerus Imaging showed commuted and impacted left humeral neck fracture. Otherwise diagnostic imaging negative for acute changes Ortho consulted continue nonoperative management with LUE in sling/immobilizer. No ROM of the left shoulder for now, nonweightbearing with the LUE. Ice to left shoulder as needed for pain swelling, elevate arm on pillows when lying down. Follow-up outpatient in 7-10 days Pain regimen: Scheduled Tylenol 1,000 mg TID, ibuprofen 200 mg q4h PRN pain, oxycodone 2.5-5 mg q6h PRN breakthrough pain PT/OT recommending rehab/[facility]. 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 Referral for [facility] Discussed discharge planning with CM Admission HPI Per Admitting Provider Patient is an 89-year-old female with a past medical history of cognitive impairment, hypertension, osteoporosis, hyperlipidemia. She presented to the ED via EMS after an unwitnessed, but fall in which her foot got stuck in a blanket when she went from sitting to standing from a chair. Diagnostic imaging in the ED revealed an impacted comminuted left humeral neck fracture. Patient is being admitted for ambulatory dysfunction as she uses a walker and a cane at home. Patient lives with her daughter at home who has work tomorrow and there was concerned about her being at home alone after the fall. Patient seen at bedside. she is oriented to self only. She stated she does remember falling today and fell on her left arm however does not remember what happened. She denies any head strike or loss of consciousness. Patient was very distressed about falling as she is always in good health and has had no falls previously. She said she vomited at home because she was upset about this. She typically ambulates well at baseline. She denies any significant ROS, pain is well-controlled at this point. She stated she lives at home with her family/daughter. Spoke with patient's daughter, Melanie on the phone. She stated that the patient has been more confused at home and up in the middle of the night however lives at home with her sister, Concepcion. The ultimate goal is for the patient to return home. She stated that the patient would wish to be full code and that she may be acutely more confused than her baseline after the morphine. Discharge Exam General: No acute distress, nondiaphoretic, well-developed, well-nourished. Cardiac: Regular rate and rhythm without murmurs gallops or rubs. Pulm: Clear to auscultation bilaterally without wheezes, rales or rhonchi. No respiratory distress. 93% on 1 L NC. Abdominal: Soft, nontender, nondistended. Bowel sounds present. Neuro: A&O x2 (person, intermittently to place). No focal neurological deficits. MSK: LUE in sling. Left shoulder with significant swelling and limited ROM. Wrist/finger ROM and sensation intact. Cap refill <3 seconds. Discharge Plan Discharge Items Patient Disposition: Transfer Inpatient Rehab Fac Reason For Visit: L HUMERAL NECK FX, AMBULATORY DYSFUNTION Discharge Diagnosis: Left humeral neck fracture Ambulatory dysfunction Condition on Discharge: Good Activity: Per Instructions section Non-emergency contact: Primary Care Provider and Surgeon Call non-emergency contact if: you have any medication questions and your symptoms worsen Follow-up/Referrals: Danette Kuo MD [Primary Care Provider] - (Follow-up in 1-2 weeks) Amaury Penaloza PA [Physician [employer]] - 01/11/25 2:00 pm Diet: Regular Addtl Attending Provider Instructions: Cruz Quinones were admitted to the hospital after a fall that resulted in a left humeral neck fracture. You were evaluated by the orthopedic surgery team, who recommended non-operative management. You are being discharged to [facility] for rehab. Upon discharge from the hospital: * Continue your pain regimen which includes scheduled Tylenol 1000 mg 3 times daily, ibuprofen 200 mg every 4 hours as needed for mild-moderate pain, and oxycodone 2.5-5 mg every 6 hours as needed for breakthrough pain. * Follow the instructions from the orthopedics team as listed below. * Follow-up with orthopedics outpatient. You have an appointment scheduled for 01/11/2025 at 2:00 PM. * Follow-up with your PCP in 1-2 weeks. It was a pleasure taking care of you while you were in the hospital! 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 - Nonweightbearing left upper extremity. - No range of motion in the left shoulder for now - Okay for PT to work on active and passive range of motion of the elbow, wrist, fingers. - Ice to affected area 20 minutes every 1-2 hours as needed for pain and swelling - Can elevate the lower arm on pillow on chest for dependent swelling. - Pain management and DVT prophylaxis per primary service - Orthopedic follow-up 01/11/2025 as scheduled and listed above. - Contact orthopedics office at [phone] with any questions or concerns Pending Studies at Discharge: No Stand-Alone Forms: My [facility] [employer] Skilled Items Patient informed of condition?: Yes DNR: No Discharge Level of Care: Acute rehab Communicable Disease: No Discharge Prognosis: Stable Lines: None Urinary Catheter: No Medications and DC Order Prescriptions: New acetaminophen [Tylenol Extra Strength] 500 mg Tablet 1,000 mg PO TID Qty: 90 0RF ibuprofen 200 mg Tablet 200 mg PO Q4H PRN (Reason: pain) Qty: 30 0RF oxycodone 5 mg Tablet 2.5 - 5 mg PO Q6 PRN (Reason: pain) Qty: 14 0RF Continued levothyroxine 75 mcg tablet 75 mcg PO DAILY Qty: 90 3RF simvastatin 20 mg tablet 20 mg PO QPM Qty: 90 3RF escitalopram oxalate 10 mg tablet 10 mg PO DAILY Qty: 10 0RF alendronate [Fosamax] 70 mg tablet 70 mg PO WK Rx Instructions: 70 mg orally once weekly; ferrous sulfate 325 mg (65 mg iron) tablet 325 mg PO [id number] Rx Instructions: Tuesday, Tuesday, and Tuesday; Discharge Orders: Discharge Order (Routine); Ordered 01/04/25 Ordered By: Ирина Palafox Admission Data Admit Date/Time: 01/02/25 00:06 Attending Provider: Brice Parikh Admit Provider: Olena Laughlin Primary Care Provider: Danette Kuo Other Providers: Brice Morton; [facility] Hospital Stay Data Consultations 01/02/25 07:00 Consult Orthopedic Surgery Routine Diagnostic Imagining Performed 01/01/25 20:03 CT Abd and Pelvis [CT abd pelvis IV con only] Stat CT chest diagnostic w con Stat CT head/brain wo con Stat CT neck [CT cervical spine wo con] Stat 01/01/25 20:05 CT lumbar spine w con Stat CT thoracic spine w con Stat 01/01/25 20:46 CT shoulder LT wo con Stat Pending Results Patient Have Any Pending Studies at Discharge: No Discharge Instructions Given to Patient (Per Discharging Provider) Cruz Quinones were admitted to the hospital after a fall that resulted in a left humeral neck fracture. You were evaluated by the orthopedic surgery team, who recommended non-operative management. You are being discharged to [facility] for rehab. Upon discharge from the hospital: * Continue your pain regimen which includes scheduled Tylenol 1000 mg 3 times daily, ibuprofen 200 mg every 4 hours as needed for mild-moderate pain, and oxycodone 2.5-5 mg every 6 hours as needed for breakthrough pain. * Follow the instructions from the orthopedics team as listed below. * Follow-up with orthopedics outpatient. You have an appointment scheduled for 01/11/2025 at 2:00 PM. * Follow-up with your PCP in 1-2 weeks. It was a pleasure taking care of you while you were in the hospital! Coding Diagnoses Closed fracture of neck of left humerus, initial encounter S42.212A Encounter type: initial encounter Fracture type: closed Ambulatory dysfunction R26.2 Fall W19.XXXA Cognitive impairment R41.89
== END 2025-01-04 13:11 | DRG 544 ==
LOC: ED 17:22 → EDINP 01-02 00:06 → SUATTDRO 01-02 00:06 → 3W 01-02 01:32
DX: M80.022A Age-related osteoporosis with current pathological fracture, left humerus, initial encounter for fracture; E03.9 Hypothyroidism, unspecified; D72.829 Elevated white blood cell count, unspecified; E78.5 Hyperlipidemia, unspecified; F03.90 Unspecified dementia, unspecified severity, without behavioral disturbance, psychotic disturbance, mood disturbance, and anxiety; I10 Essential (primary) hypertension; Z79.890 Hormone replacement therapy; W18.39XA Other fall on same level, initial encounter; Z79.899 Other long term (current) drug therapy; R09.02 Hypoxemia